=== PATIENT | female | born 1970 | race Caucasian/White ===

== ENCOUNTER 2016-11-05 10:55 | Emergency (ER) | payer OTHER ==
[2016-11-05 12:30] VITALS: BP 113/71
--- NOTE | 2016-11-05 12:44 | UC ---
Lower Extremity/Ankle HPI - HPI Summary HPI Summary: complaint of right foot pain that started yesterday started after pushing a car- felt a pop and lots of pain that started in her foot and shot up her right leg unable to bear any weight after incident - can ambulate with a limp today resting her leg reduces the pain has taken ibuprofen for pain without relief hx of plantar facitis and bone spurs in both feet - History of Current Complaint Chief Complaint: UCLowerExtremity Stated Complaint: RIGHT FOOT INJURY Time Seen by Provider: 11/05/16 12:35 Hx Obtained From: Patient Hx Last Menstrual Period: APPROX 1 WEEK AGO Aggravating Factor(s): Standing, Ambulation Alleviating Factor(s): Rest Able to Bear Weight: Yes - Allergies/Home Medications Allergies/Adverse Reactions: Allergies Allergy/AdvReac Type Severity Reaction Status Date / Time Morphine Allergy Vomiting Verified 11/05/16 12:23 Naproxen Allergy Hives Verified 11/05/16 12:23 Sertraline [From Zoloft] Allergy Hives Verified 11/05/16 12:23 Sulfa Antibiotics Allergy Hives Verified 11/05/16 12:23 Valproic Acid [From Depakote] Allergy Hives Verified 11/05/16 12:23 Home Medications: Home Medications Cholecalciferol TAB* [Vitamin D TAB*] 400 unit PO DAILY 11/05/16 [History Confirmed 11/05/16] PMH/Surg Hx/FS Hx/Imm Hx Previously Healthy: Yes Endocrine History Of: Reports: Thyroid Disease - KRIS Cardiovascular History Of: Denies: Pacemaker/ICD Respiratory History Of: Reports: Asthma - Surgical History Surgical History: Yes Surgery Procedure, Year, and Place: PARTIAL THYROIDECTOMY- now complete. CHOLECYSTECTOMY. RIGHT FOOT SX. hysterectomy - Family History Known Family History: Negative: Cardiac Disease, Hypertension, Diabetes - Social History Occupation: Employed Full-time Lives: With Family Alcohol Use: Rare Substance Use Type: None Smoking Status (MU): Heavy Every Day Tobacco Smoker Type: Cigarettes Amount Used/How Often: 1 1/2 ppd Length of Time of Smoking/Using Tobacco: 30 YRS since age 15 yo Have You Smoked in the Last Year: Yes Household Exposure Type: Cigarettes Cessation Counseling: Patient Advised to Stop Review of Systems Constitutional: Negative Skin: Negative Eyes: Negative ENT: Negative Respiratory: Negative Cardiovascular: Negative Gastrointestinal: Negative Genitourinary: Negative Motor: Negative Neurovascular: Negative Musculoskeletal: Other: - right foot pain Neurological: Negative Psychological: Negative All Other Systems Reviewed And Are Negative: Yes Physical Exam Triage Information Reviewed: Yes Appearance: No Pain Distress, Well-Nourished Vital Signs: Initial Vital Signs Temp 97.5 F 11/05/16 12:25 Pulse 87 11/05/16 12:25 Resp 16 11/05/16 12:25 BP 113/71 11/05/16 12:25 Pulse Ox 98 11/05/16 12:25 Vital Signs Reviewed: Yes Eyes: Positive: Conjunctiva Clear ENT: Positive: Pharynx normal, TMs normal Neck: Positive: No Lymphadenopathy Respiratory: Positive: Lungs clear, Normal breath sounds, No respiratory distress, No accessory muscle use Cardiovascular: Positive: RRR, No Murmur, Pulses Normal Abdomen Description: Positive: Nontender, Soft Bowel Sounds: Positive: Present Musculoskeletal: Positive: Other: - RLE- tenderness between heel and 1st metatarsals, No bony deformities, inflammation, or tenderness in bony prominences of ankle. No pes planus. Full ROM dorsi/plantar flexion, inversion & eversion. Hope test negative.no stepoffs in achilles tendon Neurological Exam: Normal Psychological Exam: Normal Lower Extremity Course/Dx - Differential Dx/Diagnosis Differential Diagnosis/HQI/PQRI: Fracture (Closed), Sprain, Strain, Tendonitis Provider Diagnoses: right foot sprain Discharge - Discharge Plan Condition: Stable Disposition: HOME Patient Education Materials: Foot Sprain (ED), RICE Therapy (ED) Forms: *Work Release Referrals: Richard Chamberlain DO [Primary Care Provider] - Horace Byrnes MD [Medical Doctor] - Additional Instructions: FOOT SPRAIN Symptoms Might Include: Pain in your ankle, foot, or lower leg area Bruising and/or Swelling Possible deformity (bones not lined up as usual) Treatment Recommendations: You should prop your foot up above the level of your heart for the first 24 to 48 hours. This helps cut down on the pain and swelling. You should put an ice pack wrapped in a towel on the injured area for 15 to 20 minutes every 2 to 3 hours when you are awake for the first 2 to 3 days. A compression dressing, like a Velcro splint or Joel wrap, will help give support and cut down on swelling. If the wrap is too tight, it may cause numbness, tingling, paleness, or a cool feeling. If this happens, the wrap should be taken off and put back on looser. Crutches should be used if there is any pain when you put your weight on your foot. You usually only need to use crutches for the first few days. If you have a more severe sprain you might need to use them longer. As the pain gets better , try to walk without the crutches a little at a time until you can walk without any pain. Remember not to overdo it. It may take 3 to 4 weeks to completely get better, even for a mild sprain. It can take much longer for more severe sprains. naproxen (Aleve) may help with both the pain and the swelling in your joints. You should not take these medicines if you have a history of bleeding in your stomach. . Call Your Doctor or patient registration specialist You have a lot more pain or swelling. If the pain is not getting better in 3 days. If you start to have numbness or tingling in your foot or ankle. If the injured area starts to feel cool to the touch or is pale or bluish in color. If you start to have any other symptoms that worry you.
--- NOTE | 2016-11-05 13:12 | RAD ---
Indication: Right foot injury. Comparison is made with previous exam dated April 06, 2008. 3 views of the foot demonstrates prior injury at the head of the proximal phalanx of the fourth digit. No recent fracture is identified. IMPRESSION: Deformity proximal phalanx fourth digit which may be due to prior injury. No recent fracture or abnormality is identified.
== END 2016-11-05 13:37 | disposition home or self-care (01) ==
LOC: UCCORT 10:55
DX: S93.601A Unspecified sprain of right foot, initial encounter (principal); X50.0XXA Overexertion from strenuous movement or load, initial encounter; Y93.89 Activity, other specified; Y92.9 Unspecified place or not applicable; E06.3 Autoimmune thyroiditis; J45.909 Unspecified asthma, uncomplicated; E89.0 Postprocedural hypothyroidism; Z90.49 Acquired absence of other specified parts of digestive tract; Z88.5 Allergy status to narcotic agent; Z88.2 Allergy status to sulfonamides; F17.210 Nicotine dependence, cigarettes, uncomplicated
CPT/HCPCS: 99212; G0463

== ENCOUNTER 2017-09-21 08:50 | Emergency (ER) | payer BC, OTHER ==
--- OUTSIDE RECORDS SUMMARY | 2017-09-21 09:04 | XMS REPORT ---
:1970 External Reference #:[id number] Author Organization [facility] Address [address], [address] [place] [address] Phone [phone] Care Team Providers Name Role Phone Valencia Case MD Care Team Information Legal Entity Controller Unavailable Valencia Case MD Primary Care Physician Unavailable Payers Type Date Identification Numbers Payment Provider Subscriber Commercial Policy Number: [id number] [facility] Roxanna Villanueva PayID: [id number] [address] [place] [address] Commercial Expires: 2017 Policy Number: [facility] Roxanna Villanueva [id number] PayID: [id number] [address] [place] [address] Medigap Part B Expires: 2011 Policy Number: Amber Villanueva [id number] PayID: [id number] [address] [address] [place] [address] Problems Date Description Provider Status Onset: 05/29/2017 Seizure Bella Chauhan M.D. Active Note: seizure disorder, followed by neuro, on phenytoin Onset: 05/29/2017 Hypothyroidism Bella Chauhan M.D. Active Note: hypothyroidism, s/p thyroidectomy Onset: 05/29/2017 Serum triglycerides borderline high Bella Chauhan M.D. Active Onset: 05/29/2017 Tobacco user Bella Chauhan M.D. Active Note: smokes daily Onset: 09/05/2017 Hyperlipidemia Valencia Case MD Active Onset: 03/09/2017 Otitis media Ceferino Rawls M.D. Inactive Inactive: 05/29/2017 Onset: 03/09/2017 Acute sinusitis Ceferino Rawls M.D. 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 Cigarette Use Patient is a current cigarette smoker, smokes every day Smoking Patient is a current smoker, smokes smokes 1 1/2 ppd x 32 years every day Daily Caffeine Current Caffeine User Allergies, Adverse Reactions, Alerts Date Description Reaction Status Severity Comments 12/15/2016 Sulfa Drugs active 12/15/2016 Naproxen active 12/15/2016 Valproic Acid active 12/15/2016 Morphine active 12/15/2016 Zoloft active 09/05/2017 Lipitor active Mouth Sores Medications Medication Date Status Form Strength Qnty SIG Indications Ordering Provider Vitamin D 09/05/ Active Capsules [id number] 12cap 1 tab by Valencia (Ergocalciferol 2018 s mouth every Evie, ) week for 12 MD weeks then stop and switch to daily maintenance Fenofibrate 09/05/ Active Capsules 67mg 30cap 1 tab by Valencia Micronized 2017 s mouth every Evie, day Pravastatin 07/17/ Active Tablets 40mg 30tab 1 tab by Valencia Sodium 2017 s mouth every Evie, day Methocarbamol 05/02/ Active Tablets 750mg 30tab 1-2 tabs by Valencia 2016 s mouth once Evie, at night Levoxyl / Active Tablets 200mcg 1 po qd Unknown 0000 Proair HFA / Active Aerosol 108(90Bas 8.500 2 - 4 Bella 0000 e) gm inhalations Pompo, mcg/Act every 6 M.D. hours as needed, Phenytoin / Active Capsules 100mg 5 PO even Unknown Sodium Extended 0000 days, 4 PO odd days Omeprazole / Active Capsules 40mg 30cap take one Valencia 0000 DR s capsule by Evie, mouth once MD daily Prednisone 08/17/ Hx Tablets 20mg 10tab 2 tabs (40 Valencia 2018 - s mg) daily Evie, 09/05/ for 5 days MD 2017 for shortness of breath/wheez ing Azithromycin 08/17/ Hx Tablets 250mg 6tabs take 2 tabs Valencia 2018 - on day 1 and Veie, 09/05/ take one tab MD 2017 days 2-5 Fluconazole 05/30/ Hx Tablets 200mg 14tab take one B37.81 Bella 2017 - s tablet by Pompo, 09/05/ mouth every M.D. 2018 day for 14 days Lidocaine 05/30/ Hx Solution 2% 200ml rinse mouth K14.0 Bella Viscous 2016 - with 15 ML Pompo, 09/05/ then spit M.D. 2018 out, every 8 hours as needed for mouth pain Tessalon Perles 05/30/ Hx Capsules 100mg 60cap take two J06.9 Bella 2017 s tablets by Pompo, mouth every M.D. 8 hours as needed for cough Spacer 05/30/ Hx 1unit spacer to J06.9 Bella 2017 - s use with Pompo, 09/05/ albuterol M.D. 2018 inhalor as directed Azithromycin 05/30/ Hx Tablets 250mg 6tabs take two J06.9 Bella 2017 tablets by Pompo, mouth on day M.D. one then take one tablet by mouth on day two, three, four, and five Amoxicillin/Cla 05/25/ Hx Tablets 875-125mg 14tab 1 tab by Valencia vulanate 2017 - s mouth q12hrs Evie, Potassium 05/30/ for 7 days 2016 Vitamin D3 High 05/02/ Hx Capsules 1000Unit 2 tabs by Valencia Potency 2017 - mouth every Evie, 09/05/ day MD 2017 Lipitor 05/02/ Hx Tablets 40mg 30tab 1 tab by Valencia 2017 - s mouth every Evie, 07/17/ evening MD 2018 Augmentin 03/09/ Hx Tablets 875-125mg 20tab 1 tab by [id number] Andras 2016 - s mouth twice [facility], 05/02/ a day for 10 M.D. 2016 days Gemfibrozil 01/10/ Hx Tablets 600mg 60tab take one Valencia 2016 - s tablet by Evie, 05/02/ mouth twice 2016 a day,30 minutes before breakfast and dinner Calcitriol / Hx Capsules 5mg 1 cap by Unknown 0000 - mouth three 05/02/ a day 2016 Hydrocodone-Joel / Hx Tablets prn Unknown taminophen 0000 - 2017 Immunizations CPT Code Status Date Vaccine Reaction Lot # [id number] Given 08/28/2017 MMR Vaccine, Live, For Subcutaneous Use none [id number] Given 06/26/2017 MMR Vaccine, Live, For Subcutaneous Use [id number] Given 01/10/2017 Pneumovax Injection [id number] Vital Signs Date Vital Result Comment 09/05/2017 BP Systolic Sitting Right Arm 112 mmHg BP Diastolic Sitting Right Arm 68 mmHg Heart Rate 92 /min Respiratory Rate 20 /min Height 63.5 inches 5'3.50" Weight 201.00 lb BMI (Body Mass Index) 35.0 kg/m2 BSA (Body Surface Area) 1.95 m2 [place] body weight in kilograms 53 08/17/2017 BP Systolic Sitting Right Arm 104 mmHg BP Diastolic Sitting Right Arm 75 mmHg Body Temperature 98.0 F Heart Rate 91 /min Height 63.5 inches 5'3.50" Weight 201.00 lb BMI (Body Mass Index) 35.0 kg/m2 BSA (Body Surface Area) 1.95 m2 [place] body weight in kilograms 53 O2 % BldC Oximetry 99 % ra 05/30/2017 BP Systolic Sitting Right Arm 120 mmHg BP Diastolic Sitting Right Arm 73 mmHg Body Temperature 98.1 F Heart Rate 86 /min Respiratory Rate 16 /min Height 63.5 inches 5'3.50" Weight 200.00 lb BMI (Body Mass Index) 34.9 kg/m2 BSA (Body Surface Area) 1.95 m2 [place] body weight in kilograms 53 O2 % BldC Oximetry 97 % 05/02/2017 BP Systolic 118 mmHg BP Diastolic 62 mmHg Heart Rate 86 /min Respiratory Rate 14 /min Height 63.5 inches 5'3.50" Weight 204.12 lb BMI (Body Mass Index) 35.6 kg/m2 BSA (Body Surface Area) 1.96 m2 [place] body weight in kilograms 53 O2 % BldC Oximetry 98 % 03/09/2017 BP Systolic 125 mmHg BP Diastolic 82 mmHg Body Temperature 96.4 F Heart Rate 79 /min Respiratory Rate 18 /min Height 63.5 inches 5'3.50" Weight 199.00 lb BMI (Body Mass Index) 34.7 kg/m2 BSA (Body Surface Area) 1.94 m2 [place] body weight in kilograms 53 O2 % BldC Oximetry 97 % 01/10/2017 BP Systolic Sitting Right Arm 124 mmHg BP Diastolic Sitting Right Arm 72 mmHg Height 63.5 inches 5'3.50" Weight 197.00 lb BMI (Body Mass Index) 34.3 kg/m2 BSA (Body Surface Area) 1.93 m2 [place] body weight in kilograms 53 Results Test Date Test Result H/L Range Note Comprehensive Metabolic Panel 08/28/2017 Glucose 83 mg/dL 74-106 1 BUN 7 mg/dL 7-18 1 Creatinine 0.6 mg/dL 0.6-1.3 1 Glom Filtration Rate, Estimate >60 mL/min >60 1 If >60 mL/min >60 1, 2 BUN/Creat 11.6 ratio 1 Sodium 143 mmol/L 136-145 1 Potassium 3.9 mmol/L 3.5-5.1 1 Chloride 108 mmol/L High 98-107 1 Carbon Dioxide 29 mmol/L 21-32 1 Anion Gap 6 mEq/L Low 8-16 1 Calcium 8.9 mg/dL 8.5-10.1 1 Total Protein 6.9 g/dL 6.4-8.2 1 Albumin 3.6 g/dL 3.4-5.0 1 Globulin 3.3 g/dL 1.9-4.3 1 Alb/Glob 1.1 ratio 1 Bilirubin,Total 0.2 mg/dL 0.2-1.0 1 Sgot/Ast 8 U/L Low 15-37 1, 3 SGPT/Alt 23 U/L 12-78 1 Alkaline Phosphatase 160 U/L High 45-117 1 Laboratory test 08/28/2017 Vitamin D,25-Hydroxy 16.1 ng/mL Low 30.0-100.0 1, 4 finding LDL Cholesterol 08/28/2017 Cholesterol 269 mg/dL High <200 1, 5 Profile Triglycerides 471 mg/dL High <150 1, 6 HDL Cholesterol 48 mg/dL >40 1, 7 LDL-Cholesterol TNP mg/dL < 100 1, 8 CBS W/Automated Diff 08/28/2017 White Blood Count 6.5 K/uL 3.1-10.7 1 Red Blood Count 4.52 M/uL 3.90-5.40 1 Hemoglobin 14.7 gm/dL 11.6-15.8 1 Hematocrit 45.3 % 36.0-46.1 1 Mean Cell Volume 100.2 fl High 80.9-99.0 1 Mean Corpuscular HGB 32.5 pg 25.9-32.7 1 Mean Corpuscular HGB Conc 32.5 g/dL 30.8-34.3 1 Platelet Count 299 K/uL 155-360 1 Red Cell Distri Width SD 50.6 fl High 3-47 1 Red Cell Distri Width %CV 14.1 % 11.7-14.4 1 Mean Platelet Volume 10.5 fL 8.9-12.4 1 Neut% 50.5 % 40.4-72.8 1 Lymph % 36.4 % 20.0-42.0 1 Mcdonald % 8.9 % 4.3-13.2 1 Eo% 3.1 % 0.0-6.6 1 Bas% 1.1 % 0.0-1.1 1 Neut# 3.31 K/uL 1.8-7.0 1 Lymph # 2.38 K/uL 1.0-4.0 1 Mcdonald # 0.58 K/uL 0.3-0.9 1 Eos # 0.20 K/uL 0.0-0.5 1 Baso # 0.07 K/uL 0.0-0.1 1 Throat Culture 08/17/2017 Throat Culture NORMAL THROAT FL 9, 10 Complete Complete <SEE NOTE> Laboratory test 07/13/2017 Rheumatoid Factor <10 IU/mL <14 11 finding Qnt Sed Rate - Esr 23 mm/hr High <20 Treasure 07/13/2017 [place] Homogen Titr Ser <50 1/dil 0-49 [place] Speckled Titr Ser 50 1/dil High 0-49 [place] Rim Titr Ser <50 1/dil 0-49 [place] nucleolar Titr Ser <50 1/dil 0-49 Whitney SS-A Ab Ser If-aCnc 24 [AU]/mL 0-99 Whitney SS-B Ab Ser If-aCnc 10 [AU]/mL 0-99 Whitney SM Ab Ser If-aCnc 8 [AU]/mL 0-99 Whitney GYROSCOPIC INSTRUMENT MECHANIC Ab Ser If-aCnc 18 U/ML 0-99 Whitney Scl70 Ab Ser-aCnc 6 [AU]/mL 0-99 Whitney Jo1 Ab Ser If-aCnc 12 [AU]/mL 0-99 dsDNA Ab Ser If-aCnc 5 [IU]/mL 0-99 Centromere Ab Ser-aCnc 12 [AU]/mL 0-99 Histone IgG Ser-aCnc 18 [AU]/mL 0-99 HIV Screen 4TH 05/31/2017 HIV Screen 4th Non Reactive Non Reactive 12, 13 Gen Reflex Generation wRfx Celiac Disease 05/31/2017 Immunoglobulin A 137 mg/dL 87-352 12, 14 Comp AB Profile Antigliadin Abs, IgG 3 units 0-19 12, 15 Antigliadin Abs, IgA 3 units 0-19 12, 16 Endomysial IgA Antibody Negative Negative 12 t-Transglutaminase IgA <2 U/mL 0-3 12, 17 t-Transglutaminase IgG <2 U/mL 0-5 12, 18 Vitamin B12 And Folate 05/31/2017 Vitamin B12 385 pg/mL 193-986 12 Folic Acid 4.5 ng/mL 3.1-17.5 12 Laboratory test 05/31/2017 Varicella-Zoster Virus 145 index Low Immune 12 , 19 finding IgG Ab >165 Rubella IgG Antibody 6.18 index Immune >0.99 12, 20 Rubeola Antibodies, Igg <25.0 AU/mL Low Immune >29.9 12, 21 Mumps Antibodies, Igg 76.5 AU/mL Immune >10.9 12, 22 Hepatitis B Surface Antibody Non Reactive . 12, 23 Hepatitis B Surface Antigen Negative Negative 12 Respiratory Culture W/Gram St 05/31/2017 Gram Stain <25 WBC/LPF 12 Gram Stain <10 SQUAMOUS EPI <SEE NOTE> 12, 24 Gram Stain RARE GRAM POSITI <SEE NOTE> 12, 25 Respiratory Culture YEAST LIKE ORGAN <SEE NOTE> 12, 26 Quantity MODERATE 12 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 <SEE NOTE> 12, 27 Quantity MODERATE 12 Laboratory test finding 05/30/2017 Treponema Antibody Negative Negative 28, 29 [place] Gamma Glutamyl Transpeptidase 76 U/L 5-85 28 Throat Culture Complete 05/30/2017 Throat Culture NORMAL THROAT FL 30, 31 Complete <SEE NOTE> Comprehensive Metabolic 05/29/2017 Glucose 79 mg/dL 74-106 Panel BUN 6 mg/dL Low 7-18 Creatinine 0.7 mg/dL 0.6-1.3 Glom Filtration Rate, Estimate >60 mL/min >60 If >60 mL/min >60 32 BUN/Creat 8.5 ratio Sodium 139 mmol/L 136-145 Potassium 4.0 mmol/L 3.5-5.1 Chloride 106 mmol/L 98-107 Carbon Dioxide 28 mmol/L 21-32 Anion Gap 5 mEq/L Low 8-16 Calcium 9.4 mg/dL 8.5-10.1 Total Protein 6.8 g/dL 6.4-8.2 Albumin 3.6 g/dL 3.4-5.0 Globulin 3.2 g/dL 1.9-4.3 Alb/Glob 1.1 ratio Bilirubin,Total 0.2 mg/dL 0.2-1.0 Sgot/Ast 12 U/L Low 15-37 33 SGPT/Alt 22 U/L 12-78 Alkaline Phosphatase 160 U/L High 45-117 LDL Cholesterol Profile 05/29/2017 Cholesterol 208 mg/dL High <200 34 Triglycerides 308 mg/dL High <150 35 HDL Cholesterol 50 mg/dL >40 36 LDL-Cholesterol 96 mg/dL < 100 37 Laboratory test finding 05/29/2017 Thyroid Stim Hormone 2.78 uIU/mL 0.30- 4.20 Free T4 1.11 ng/dL 0.76-1.46 CBS W/Automated Diff 05/29/2017 White Blood Count 8.1 K/uL 3.1-10.7 Red Blood Count 4.41 M/uL 3.90-5.40 Hemoglobin 14.2 gm/dL 11.6-15.8 Hematocrit 43.3 % 36.0-46.1 Mean Cell Volume 98.2 fl 80.9-99.0 Mean Corpuscular HGB 32.2 pg 25.9-32.7 Mean Corpuscular HGB Conc 32.8 g/dL 30.8-34.3 Platelet Count 261 K/uL 150-400 Red Cell Distri Width SD 49.4 fl High 3-47 Red Cell Distri Width %CV 14.1 % 11.7-14.4 Mean Platelet Volume 10.7 fL 8.9-12.4 Neut% 58.4 % 40.4-72.8 Lymph % 30.9 % 20.0-42.0 Mcdonald % 7.0 % 4.3-13.2 Eo% 3.0 % 0.0-6.6 Bas% 0.7 % 0.0-1.1 Neut# 4.73 K/uL 1.8-7.0 Lymph # 2.51 K/uL 1.0-4.0 Mcdonald # 0.57 K/uL 0.3-0.9 Eos # 0.24 K/uL 0.0-0.5 Baso # 0.06 K/uL 0.0-0.1 Laboratory test finding 04/19/2017 Thyroid Stim Hormone 0.42 uIU/mL 0.30- 4.20 38 CBS W/Automated Diff 04/19/2017 White Blood Count 7.3 K/uL 3.1-10.7 38 Red Blood Count 4.36 M/uL 3.90-5.40 38 Hemoglobin 14.2 gm/dL 11.6-15.8 38 Hematocrit 41.4 % 36.0-46.1 38 Mean Cell Volume 95.0 fl 80.9-99.0 38 Mean Corpuscular HGB 32.6 pg 25.9-32.7 38 Mean Corpuscular HGB Conc 34.3 g/dL 30.8-34.3 38 Platelet Count 247 K/uL 150-400 38 Red Cell Distri Width SD 44.3 fl 3-47 38 Red Cell Distri Width %CV 13.1 % 11.7-14.4 38 Mean Platelet Volume 10.4 fL 8.9-12.4 38 Neut% 61.5 % 40.4-72.8 38 Lymph % 28.3 % 20.0-42.0 38 Mcdonald % 6.5 % 4.3-13.2 38 Eo% 3.0 % 0.0-6.6 38 Bas% 0.7 % 0.0-1.1 38 Neut# 4.46 K/uL 1.8-7.0 38 Lymph # 2.05 K/uL 1.0-4.0 38 Mcdonald # 0.47 K/uL 0.3-0.9 38 Eos # 0.22 K/uL 0.0-0.5 38 Baso # 0.05 K/uL 0.0-0.1 38 Comprehensive Metabolic Panel 04/19/2017 Glucose 86 mg/dL 74-106 38 BUN 6 mg/dL Low 7-18 38 Creatinine 0.7 mg/dL 0.6-1.3 38 Glom Filtration Rate, Estimate >60 mL/min >60 38 If >60 mL/min >60 38, 39 BUN/Creat 8.5 ratio 38 Sodium 142 mmol/L 136-145 38 Potassium 3.8 mmol/L 3.5-5.1 38 Chloride 111 mmol/L High 98-107 38 Carbon Dioxide 25 mmol/L 21-32 38 Anion Gap 6 mEq/L Low 8-16 38 Calcium 9.4 mg/dL 8.5-10.1 38 Total Protein 7.7 g/dL 6.4-8.2 38 Albumin 3.8 g/dL 3.4-5.0 38 Globulin 3.9 g/dL 1.9-4.3 38 Alb/Glob 1.0 ratio 38 Bilirubin,Total 0.2 mg/dL 0.2-1.0 38 Sgot/Ast 8 U/L Low 15-37 38, 40 SGPT/Alt 19 U/L 12-78 38 Alkaline Phosphatase 141 U/L High 45-117 38 Laboratory test 04/19/2017 Vitamin D,25-Hydroxy 23.9 ng/mL Low 30.0-100.0 38, 41 finding LDL Cholesterol 04/19/2017 Cholesterol 296 mg/dL High <200 38, 42 Profile Triglycerides 353 mg/dL High <150 38, 43 HDL Cholesterol 48 mg/dL >40 38, 44 LDL-Cholesterol 177 mg/dL < 100 38, 45 Serum or plasma thyroxine 01/29/2017 Serum or plasma thyroxine 1.14 0.76- 1.46 (T4) free measurement (m (T4) free measurement (mass/volume) TSH SerPl-aCnc 01/29/2017 TSH [facility] 1.22 0.30-4.20 1 R94.5,E55.9 2 Note: Persistent reduction for 3 months or more in an eGFR <60 mL/min/1.73 m2 defines CKD. Patients with eGFR values >/=60 mL/min/1.73 m2 may also have CKD if evidence of persistent proteinuria is present. The original MDRD equation for estimated GFR is not valid for patients less than 18 years of age. Additional information may be found at www.kdoqi.org. 3 Values below the stated reference ranges of AST and ALT can be seen in normal populations. Clinical correlation is suggested. 4 Vitamin D deficiency has been defined by the [place] of Medicine and an Endocrine Society practice guideline as a level of serum 25-OH vitamin D less than 20 ng/mL (1,2). The Endocrine Society went on to further define vitamin D insufficiency as a level between 21 and 29 ng/mL (2). 1. IOM ([place] of Medicine). 2010. Dietary reference intakes for calcium and D. [place]: The National Academies Press. 2. Shelby MF, Inez MAKI, Pablo RUSSELL, et al. Evaluation, treatment, and prevention of vitamin D deficiency: an Endocrine Society clinical practice guideline. JCEM. 2010; 96(7):1911-30. Performed at: RN - [facility] [address] [id number] Waiter/Waitress Room Service: Francine Khan MD, Phone: [phone] 5 Reference Guidelines*: Desirable: ........... < 200 mg/dL Borderline High: ..... 200-239 mg/dL High: ................ >=240 mg/dL * The National Cholesterol Education Program (NCEP) 6 Reference Guidelines*: Normal: ............. < 150 mg/dL Borderline High: .... 150-199 mg/dL High: ............... 200-499 mg/dL Very High: .......... > 500 mg/dL * Source: National Cholesterol Education Program (NCEP) 7 Reference Guidelines*: Low HDL: ..... < 40 mg/dL Normal: ..... 40-60 mg/dL Desirable: ... > 60 mg/dL *The National Cholesterol Education Program(NCEP) 8 (LDL CANNOT BE CALCULATED FOR TRIGS >400 mg/dL) 9 J02.9 10 NORMAL THROAT LYNN 11 Confirmed 12 NO ORDER 13 Performed at: [address] [id number] Waiter/Waitress Room Service: Francine Khan MD, Phone: [phone] 14 Performed at: [address] [id number] Waiter/Waitress Room Service: Francine Khan MD, Phone: [phone] 15 Negative 0 - 19 Weak Positive 20 - 30 Moderate to Strong Positive >30 16 Negative 0 - 19 Weak Positive 20 - 30 Moderate to Strong Positive >30 17 Negative 0 - 3 Weak Positive 4 - 10 Positive >10 Tissue Transglutaminase (tTG) has been identified as the endomysial antigen. Studies have demonstr- ated that endomysial IgA antibodies have over 99% specificity for gluten sensitive enteropathy. 18 Negative 0 - 5 Weak Positive 6 - 9 Positive >9 19 A second sample should be collected and tested no less than 2-4 weeks. Negative <135 Equivocal 135 - 165 Positive >165 A positive result generally indicates exposure to the pathogen or administration of specific immunoglobulins, but it is not indication of active infection or stage of disease. Performed at: [address] [id number] Waiter/Waitress Room Service: Francine Khan MD, Phone: [phone] 20 Non-immune <0.90 Equivocal 0.90 - 0.99 Immune >0.99 Performed at: [address] [id number] Waiter/Waitress Room Service: Francine Khan MD, Phone: [phone] 21 Negative <25.0 Equivocal 25.0 - 29.9 Positive >29.9 Presence of antibodies to Rubeola is presumptive evidence of immunity except when acute infection is suspected. 22 Negative <9.0 Equivocal 9.0 - 10.9 Positive >10.9 A positive result generally indicates past exposure to Mumps virus or previous vaccination. 23 Non Reactive: Inconsistent with immunity, less than 10 mIU/mL Reactive: Consistent with immunity, greater than 9.9 mIU/mL 24 <10 SQUAMOUS EPITHELIAL CELLS/LPF 25 RARE GRAM POSITIVE COCCI 26 YEAST LIKE ORGANISM 27 RESPIRATORY LYNN 28 J06.9, K13.79, R94.5, JO6.9 29 Performed at: - [facility], [place], [place] [id number] Waiter/Waitress Room Service: Mitchell Ornelas MD, Phone: [phone] 30 J06.9,K13.79,R94.5 31 NORMAL THROAT LYNN 32 Note: Persistent reduction for 3 months or more in an eGFR <60 mL/min/1.73 m2 defines CKD. Patients with eGFR values >/=60 mL/min/1.73 m2 may also have CKD if evidence of persistent proteinuria is present. The original MDRD equation for estimated GFR is not valid for patients less than 18 years of age. Additional information may be found at www.kdoqi.org. 33 Values below the stated reference ranges of AST and ALT can be seen in normal populations. Clinical correlation is suggested. 34 Reference Guidelines*: Desirable: ........... < 200 mg/dL Borderline High: ..... 200-239 mg/dL High: ................ >=240 mg/dL * The National Cholesterol Education Program (NCEP) 35 Reference Guidelines*: Normal: ............. < 150 mg/dL Borderline High: .... 150-199 mg/dL High: ............... 200-499 mg/dL Very High: .......... > 500 mg/dL * Source: National Cholesterol Education Program (NCEP) 36 Reference Guidelines*: Low HDL: ..... < 40 mg/dL Normal: ..... 40-60 mg/dL Desirable: ... > 60 mg/dL *The National Cholesterol Education Program(NCEP) 37 Reference Guidelines*: Optimal:........... <100 mg/dL Near Optimal....... 100-129 mg/dL Borderline High.... 130-159 mg/dL High............... 160-189 mg/dL Very High.......... >=190 mg/dL * Source: National Cholesterol Education Program (NCEP) 38 E78.5,E03.9, E55.9,MO5.77 39 Note: Persistent reduction for 3 months or more in an eGFR <60 mL/min/1.73 m2 defines CKD. Patients with eGFR values >/=60 mL/min/1.73 m2 may also have CKD if evidence of persistent proteinuria is present. The original MDRD equation for estimated GFR is not valid for patients less than 18 years of age. Additional information may be found at www.kdoqi.org. 40 Values below the stated reference ranges of AST and ALT can be seen in normal populations. Clinical correlation is suggested. 41 Vitamin D deficiency has been defined by the [place] of [place] and an Endocrine Society practice guideline as a level of serum 25-OH vitamin D less than 20 ng/mL (1,2). The Endocrine Society went on to further define vitamin D insufficiency as a level between 21 and 29 ng/mL (2). 1. IOM ([place] of Medicine). 2010. Dietary reference intakes for calcium and D. [place]: The National Academies Press. 2. Shelby MF, Inez [place], Pablo RSUSELL, et al. Evaluation, treatment, and prevention of vitamin D deficiency: an Endocrine Society clinical practice guideline. JCEM. 2011 Jan; 96(7):1911-30. Performed at: RN - [facility] [address] [id number] Waiter/Waitress Room Service: Francine Khan MD, Phone: [phone] 42 Reference Guidelines*: Desirable: ........... < 200 mg/dL Borderline High: ..... 200-239 mg/dL High: ................ >=240 mg/dL * The National Cholesterol Education Program (NCEP) 43 Reference Guidelines*: Normal: ............. < 150 mg/dL Borderline High: .... 150-199 mg/dL High: ............... 200-499 mg/dL Very High: .......... > 500 mg/dL * Source: National Cholesterol Education Program (NCEP) 44 Reference Guidelines*: Low HDL: ..... < 40 mg/dL Normal: ..... 40-60 mg/dL Desirable: ... > 60 mg/dL *The National Cholesterol Education Program(NCEP) 45 Reference Guidelines*: Optimal:........... <100 mg/dL Near Optimal....... 100-129 mg/dL Borderline High.... 130-159 mg/dL High............... 160-189 mg/dL Very High.......... >=190 mg/dL * Source: National Cholesterol Education Program (NCEP) Procedures Date CPT Code Description Status Comment 12/14/2016 Mammogram Completed Document: 12/27/15 - Mammogram Result 12/13/2016 [id number] Eye Exam New Patient Completed Comprehensive 06/15/2016 Colonoscopy Completed due in 3 years againDocument: 07/14/16 - Colonoscopy report-Thrasher 12/27/2015 Mammogram Completed 03/13/2014 37432 Anesthesia, Vaginal Completed Hysterectomy 09/25/2012 [id number] Anesthesia, Lower Arm Surgery Completed Open/Surg Arthroscopic/Endoscopic 12/04/2011 [id number] Anesthesia, Upper Abdomen Completed Surgery Not Otherwise Spec 11/30/2011 32213 EKG Interpretation And Report Completed Only 10/05/2008 26870 Colonoscopy With Polypectomy Completed 10/05/2008 Colonoscopy Completed Document: 10/05/08 - Colon & BX Encounters Type Date Location Provider CPT E/M Dx Office Visit 05/30/2017 8:15a Primary Care Office Bella Chauhan M.D. 12043 K14.0 B37.81 J06.9 K13.79 R94.5 R06.02 Z71.6 J01.90 E03.9 Office Visit 05/02/2017 9:40a [place] [address] E03.9 E78.5 E55.9 M25.571 Office Visit 03/09/2017 10:40a Primary Care Office Ceferino Rawls M.D. 99606 H66.91 J01.90 Office Visit 01/10/2017 2:40p [place] [address] E78.5 E03.9 E55.9 G40.89 M72.2 Z23 Office Visit 10/20/2008 2:30p JENAE Vasquez M.D. 26227 564.1 211.3 Office Visit 08/20/2008 10:50a JENAE Vasquez M.D. 48291 787.91 530.81 564.1 Plan of Care Future Appointment(s):12/07/2017 10:00 am - Valencia Case MD at [facility] Thqfee2809/05/2017 - Valencia Case, MDR94.5 Abnormal results of liver function studiesNew Xrays:Ultrasound, Abdomen CompleteComments:-alk phos elevated, GGT normal, Vit D low-Replete vit D-Check Alk phos again-Check US of Abd -After vit D repletion, if still elevated will check bone density examE78.5 Hyperlipidemia , unspecifiedNew Labs:Comprehensive Metabolic PanelLDL Cholesterol ProfileComments:-Elevated triglycerides-Pravastatin 40mg, add fenofibrate 67mg- Discussed risk of myopathy, rhabdo and told her if she has any pain to stop medication immediately -recheck lipid panel fasting in 3 pvyfmwL28.9 Hypothyroidism, unspecifiedNew Labs:Thyroid Stim HormoneFree T1Pwdbnupa:-hx of thyroidectomy-check tsh, free t4-continue levoxyl -TSH WNL on recent blood workE55.9 Vitamin D deficiency, unspecifiedNew Labs:Vitamin D,25-HydroxyComments :-Vit D low-Ergocalciferol once a week x 12 weeks -recheck before next [id number] Metatarsalgia, right footComments:-methocarbamol at night-try during day on day off to see if it causes drowsiness and discussed risk of driving if uses during day-Podiatry Dr. Clements referred her to Rheum and Rheum referred her to Ortho-Ortho gave boot which did not helpAllNew Medication: Vitamin D (Ergocalciferol) 88362 UnitFenofibrate Micronized 67 mgFollow up:f/u in 3 months fasting blood work prior ortho notes
== END 2017-09-21 09:35 | disposition left against medical advice (07) ==
LOC: UCCORT 08:50
DX: R11.0 Nausea (principal); R52 Pain, unspecified; Z53.21 Procedure and treatment not carried out due to patient leaving prior to being seen by health care provider

== ENCOUNTER 2018-03-04 15:15 | Emergency (ER) | payer BC ==
[2018-03-04 15:51] VITALS: BP 131/75
--- NOTE | 2018-03-04 16:10 | UC ---
Abdominal Pain Female HPI - HPI Summary HPI Summary: The pt c/o frequent diarrhea up to 10 X's per day. Has not tried OTC antidiarrheal. Pt c/o worsening pain in RLQ Denies any urinary symptoms - History of Current Complaint Chief Complaint: UCGI Stated Complaint: NOT FEELING WELL X 1 WEEK Time Seen by Provider: 03/04/18 15:47 Hx Obtained From: Patient Hx Last Menstrual Period: APPROX 1 WEEK AGO ?: No Onset/Duration: Sudden Onset, Still Present, Worse Since - onset Timing: Constant Severity Initially: Mild Severity Currently: Moderate Pain Intensity: 0 Location: Discrete At: RLQ Radiates: No Character: Dull, Sharp Aggravating Factor(s): Movement Alleviating Factor(s): Nothing Associated Signs and Symptoms: Positive: Diarrhea - frequent X 10 a day - Risk Factors Ectopic Risk Factor: Negative Ovarian Torsion Risk Factor: Negative Allergies/Adverse Reactions: Allergies Allergy/AdvReac Type Severity Reaction Status Date / Time divalproex sodium Allergy Intermediate Hives Verified 03/04/18 15:55 [From Depakote] naproxen Allergy Intermediate Hives Verified 03/04/18 15:55 sertraline [From Zoloft] Allergy Intermediate Hives Verified 03/04/18 15:55 morphine AdvReac Intermediate Vomiting Verified 03/04/18 15:55 PMH/Surg Hx/FS Hx/Imm Hx Previously Healthy: Yes Respiratory History: COPD GI/ History: Gastroesophageal Reflux - Surgical History Surgical History: Yes Surgery Procedure, Year, and Place: PARTIAL THYROIDECTOMY- now complete. CHOLECYSTECTOMY. RIGHT FOOT SX. hysterectomy - Family History Known Family History: Negative: Cardiac Disease, Hypertension, Diabetes - Social History Occupation: Employed Full-time Lives: With Family Alcohol Use: Rare Substance Use Type: None Smoking Status (MU): Heavy Every Day Tobacco Smoker Type: Cigarettes Amount Used/How Often: 1 1/2 ppd Length of Time of Smoking/Using Tobacco: 30 YRS since age 15 yo Have You Smoked in the Last Year: Yes Household Exposure Type: Cigarettes Review of Systems Constitutional: Negative Skin: Negative Eyes: Negative ENT: Negative Respiratory: Negative Cardiovascular: Negative Gastrointestinal: Abdominal Pain - RLQ, Diarrhea Genitourinary: Negative Motor: Negative Neurovascular: Negative Musculoskeletal: Negative Neurological: Negative Psychological: Negative Is Patient Immunocompromised?: No All Other Systems Reviewed And Are Negative: Yes Physical Exam Triage Information Reviewed: Yes Appearance: Pain Distress Vital Signs: Initial Vital Signs Temp 98.3 F 03/04/18 15:46 Pulse 89 03/04/18 15:46 Resp 18 03/04/18 15:46 BP 131/75 03/04/18 15:46 Pulse Ox 99 03/04/18 15:46 Vital Signs Reviewed: Yes Eye Exam: Normal ENT Exam: Normal Dental Exam: Normal Neck exam: Normal Respiratory Exam: Normal Cardiovascular Exam: Normal Abdomen Description: Positive: McBurney's Point Tenderness Bowel Sounds: Positive: Present Musculoskeletal Exam: Normal Neurological Exam: Normal Psychological Exam: Normal Skin Exam: Normal Diagnostics - Radiology No standard instances Radiology Interpretation Completed By: Radiologist - IMPRESSION: NO EVIDENCE OF OBSTRUCTIVE UROPATHY IS NOTED. NO EVIDENCE OF DILATED LOOPS OF BOWEL ARE PRESENT. NORMAL APPENDIX. PATIENT IS STATUS POST HYSTERECTOMY. Abd Pain Female Course/Dx - Differential Dx/Diagnosis Differential Diagnosis: Appendicitis, Diverticulitis Provider Diagnoses: abdominal pain. diarrhea Discharge - Sign-Out/Discharge Documenting (check all that apply): Patient Departure All imaging exams completed and their final reports reviewed: Yes - Discharge Plan Condition: Stable Disposition: HOME Patient Education Materials: Acute Diarrhea (ED), Abdominal Pain (ED) Forms: *Work Release Referrals: [facility] [Outside] - As Soon As Possible No Primary Care Phys,NOPCP [Primary Care Provider] - - Billing Disposition and Condition Condition: STABLE Disposition: Home
--- NOTE | 2018-03-04 16:50 | RAD ---
Indication: Abdominal pain. CT of the abdomen and pelvis was performed without oral or IV contrast administration. Coronal and sagittal reconstructed images were obtained. There are no prior studies available for comparison Lung bases demonstrate no pleural fluid, nodules or masses. Heart is of normal size without evidence of pericardial effusion. Liver is normal in size. Patient is status post cholecystectomy. There are no focal hepatic lesions or intrahepatic ductal dilatation although evaluation is limited due to lack of IV contrast. Pancreas demonstrates no mass or pancreatic duct dilatation. The spleen is normal in size. No adrenal masses are noted. The kidneys demonstrate no hydronephrosis in either kidney. No focal masses are noted in the kidneys. Atherosclerotic aorta is noted. No evidence of abdominal aortic aneurysm is noted. Inferior vena cava is unremarkable. No retroperitoneal lymphadenopathy is noted. No dilated loops of bowel are noted. Evaluation of the pelvis demonstrates normal-appearing appendix. No abnormally dilated loops of bowel are noted. The urinary bladder is unremarkable. The patient is status post hysterectomy. No hernias are identified. The bony structures demonstrate no fracture of the pelvis or lumbar spine. IMPRESSION: NO EVIDENCE OF OBSTRUCTIVE UROPATHY IS NOTED. NO EVIDENCE OF DILATED LOOPS OF BOWEL ARE PRESENT. NORMAL APPENDIX. PATIENT IS STATUS POST HYSTERECTOMY.
== END 2018-03-04 17:01 | disposition home or self-care (01) ==
LOC: UCCORT 15:15
DX: R10.31 Right lower quadrant pain (principal); R19.7 Diarrhea, unspecified; Z88.8 Allergy status to other drugs, medicaments and biological substances; Z88.5 Allergy status to narcotic agent; F17.210 Nicotine dependence, cigarettes, uncomplicated
CPT/HCPCS: 74176; 99211; G0463

== ENCOUNTER 2019-01-05 16:39 | Emergency (ER) | payer BC, OTHER ==
[2019-01-05 17:10] VITALS: BP 130/83
[2019-01-05] MEDS ORDERED: Gelfoam 12-7 ADSORBABL SPONGE* 1 EA SPONGE TOPICAL ONE (17:21)
--- NOTE | 2019-01-05 17:24 | UC ---
Laceration HPI - HPI Summary HPI Summary: At work when she sustained a laceration to her right ring finger from a broken dish. She is unsure of her last tetanus immunization however she refuses that here. - History Of Current Complaint Chief Complaint: UCLaceration Stated Complaint: LACERATION RIGHT RING FINGER Time Seen by Provider: 01/05/19 17:05 Hx Obtained From: Patient Hx Last Menstrual Period: APPROX 1 WEEK AGO Laceration Location: Finger Mechanism Of Injury: Sharp Trauma Onset/Duration: Sudden Onset Severity: Mild Pain Intensity: 8 Aggravating Factors: Movement - Allergies/Home Medications Allergies/Adverse Reactions: Allergies Allergy/AdvReac Type Severity Reaction Status Date / Time divalproex sodium Allergy Intermediate Hives Verified 01/05/19 17:02 [From Depakote] naproxen Allergy Intermediate Hives Verified 01/05/19 17:02 sertraline [From Zoloft] Allergy Intermediate Hives Verified 01/05/19 17:02 morphine AdvReac Intermediate Vomiting Verified 01/05/19 17:02 PMH/Surg Hx/FS Hx/Imm Hx Previously Healthy: Yes Endocrine History: Thyroid Disease Respiratory History: Asthma - Surgical History Surgical History: Yes Surgery Procedure, Year, and Place: THYROIDECTOMY- now complete. CHOLECYSTECTOMY. RIGHT FOOT SX. hysterectomy - Family History Known Family History: Negative: Cardiac Disease, Hypertension, Diabetes - Social History Lives: With Family Alcohol Use: Rare Substance Use Type: None Smoking Status (MU): Heavy Every Day Tobacco Smoker Type: Cigarettes Amount Used/How Often: 1 1/2 ppd Length of Time of Smoking/Using Tobacco: 30 YRS since age 14 yo Have You Smoked in the Last Year: Yes Household Exposure Type: Cigarettes Review of Systems All Other Systems Reviewed And Are Negative: Yes Skin: Positive: Other - Avulsion laceration to distal right ring finger. Bleeding is controlled. Motor: Positive: Negative Neurovascular: Positive: Negative Musculoskeletal: Positive: Negative Neurological: Positive: Negative Psychological: Positive: Negative Is Patient Immunocompromised?: No Physical Exam Triage Information Reviewed: Yes Appearance: Well-Appearing, No Pain Distress, Well-Nourished Vital Signs: Initial Vital Signs Temp 98 F 01/05/19 17:03 Pulse 85 01/05/19 17:03 Resp 20 01/05/19 17:03 BP 130/83 01/05/19 17:03 Pulse Ox 96 01/05/19 17:03 Vital Signs Reviewed: Yes Musculoskeletal Exam: Normal Musculoskeletal: Positive: Other: - Good peripheral pulses neuro sensation capillary refill, full range of motion with flexion and extension against resistance. Neurological Exam: Normal Psychological Exam: Normal Skin: Positive: Other - Approximately 1.0 cm superficial avulsion laceration to distal right ring finger palmar side. Bleeding is controlled. Laceration Course/Dx - Course/Dx Course Of Treatment: Patient refused a tetanus immunization. A Gelfoam dressing was applied here and she may change it daily and watch for signs of infection which were reviewed with the patient. She'll follow-up with her primary care provider as needed. - Diagnosis Provider Diagnosis: Laceration of right ring finger Discharge - Sign-Out/Discharge Documenting (check all that apply): Patient Departure All imaging exams completed and their final reports reviewed: No Studies - Discharge Plan Condition: Fair Disposition: HOME Patient Education Materials: Laceration (DC) Referrals: Valencia Case MD [Primary Care Provider] - Additional Instructions: Change dressing daily, watch for signs of infection such as hot, red, tender, pus drainage or red streaks up the finger. Tylenol for pain. Follow-up with your primary care provider for any further concerns. - Billing Disposition and Condition Condition: FAIR Disposition: Home
== END 2019-01-05 17:39 | disposition home or self-care (01) ==
LOC: UCCORT 16:39
DX: S61.214A Laceration without foreign body of right ring finger without damage to nail, initial encounter (principal); W26.8XXA Contact with other sharp object(s), not elsewhere classified, initial encounter; Y92.9 Unspecified place or not applicable; Z88.5 Allergy status to narcotic agent; F17.210 Nicotine dependence, cigarettes, uncomplicated
CPT/HCPCS: 99212; A9270-GY; G0463

== ENCOUNTER 2019-02-10 18:44 | Emergency (ER) | payer BC, OTHER ==
--- OUTSIDE RECORDS SUMMARY | 2019-02-10 18:56 | XMS REPORT | Continuity of Care Document ---
:1970 External Reference #:[id number] Author Name Valencia Case MD Address [address] [place] [address] Care Team Providers Name Role Phone Valencia Case MD Care Team Information Instant Print Operator Unavailable Valencia Case MD Primary Care Physician Unavailable Payers Date Identification Numbers Payment Provider Subscriber Onset: 2019 Policy Number: [id number] [employer] Roxanna Villanueva PayID: [id number] [place] [address] Problems Active Problems Provider Date Seizure Bella Chauhan M.D. Onset: 05/29/2017 Note: seizure disorder, followed by neuro, on phenytoin Hypothyroidism Bella Chauhan M.D. Onset: 05/29/2017 Note: hypothyroidism, s/p thyroidectomy Serum triglycerides borderline high Bella Chauhan M.D. Onset: 05/29/2017 Tobacco user Bella Chauhan M.D. 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 Onset: 03/09/2017 Inactive: 05/29/2017 Acute sinusitis Ceferino Rawls M.D. 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 Tobacco Use Start: Unknown Patient is a current cigarette smoker, smokes every day Smoking Status Reviewed: 01/10/19 Patient is a current cigarette smoker, smokes every day Tobacco Use Start: Unknown Patient is a current smokes 1 1/2 ppd x 32 smoker, smokes every day years Allergies, Adverse Reactions, Alerts Active Allergies Reaction Severity Comments Date Sulfa Drugs 12/15/2016 Naproxen 12/15/2016 Depakote 12/15/2016 Morphine 12/15/2016 Divalproex Sodium 09/21/2017 Zoloft 12/15/2016 Atorvastatin 09/21/2017 Lipitor Mouth Sores 09/05/2017 Medications Active Medications SIG Qnty Indications Ordering Date Provider Cephalexin 1 by mouth three 30caps L03.011 Valencia Case, 01/10/2019 500mg times a day MD Capsules Nicotrol inhale and use up 168units Valencia Case, 09/18/2018 10mg to 6 cartridges a MD Inhaler day Ventolin HFA take 2 puffs every 24gm Valencia Case, 01/15/2018 6 hours as needed 108(90Base) mcg/Act for shortness of Aerosol breath. Gemfibrozil take one tablet by 180tabs Valencia Case, 01/15/2018 600mg mouth twice a MD Tablets day,30 minutes before breakfast and dinner Levoxyl Take 1 Tablet 90tabs Valencia Case, 200mcg Daily MD Tablets Phenytoin Sodium Take 3 Capsules 270caps Valencia Case, Extended Every Night MD 100mg Capsules Omeprazole take 1 capsule by 90caps Valencia Case, 40mg mouth once daily MD Capsules DR History Medications Amoxicillin/Clavulanate take one tablet 20tabs J01.90 Evie, 10/30/2018 - Potassium every 12 hours MD Valencia 01/10/2019 875-125mg Tablets Ipratropium Wheeler use 2 sprays in 15ml J00 Evie, 10/30/2018 - 0.06% Solution each nostril MD Valencia 01/10/2019 twice a day Dexamethasone take two tablets 10tabs H92.01 Evie, 10/30/2018 - 4mg Tablets every morning MD Valencia 01/10/2019 Ipratropium Wheeler use 2 sprays in 15ml J30.89 Gagen, 07/05/2018 - 0.06% Solution each nostril Jennifer, 09/18/2018 twice a day MS, 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, 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 Amoxicillin/Clavulanate take one tablet 20tabs J01.90 Gagen, 07/05/2018 - Potassium every 12 hours Jennifer, 09/18/2018 875-125mg Tablets MSLUIZAP-C, CNM Levocetirizine 1 by mouth every 30tabs Evie, 06/13/2018 - Dihydrochloride night MD Valencia 09/18/2018 5mg Tablets Prednisone 2 tabs (40 mg) 10tabs Evie, 06/13/2018 - 20mg Tablets daily for 5 days MD Valencia 07/05/2018 for shortness of breath/wheezing Rosuvastatin Calcium 1 tab by mouth 30tabs E78.5 Evie, 06/13/2018 - 5mg Tablets every evening MD Valencia 07/05/2018 Fluticasone Propionate spray 1-2 sprays 15.800ml Evie, 06/13/2018 - 50mcg/Act in each nostril MD Valencia 09/18/2018 Suspension once every day Amoxicillin 1 tab by mouth 14tabs Evie, 03/12/2018 - 500mg Tablets q12hrs x7 days MD Valencia 06/13/2018 Probiotic 1 by mouth every 30caps Evie, 03/12/2018 - Capsules day MD Valencia 06/13/2018 Dunia Lynn take two tablets 90caps Evie, 01/15/2018 - 100mg Capsules by mouth every 8 MD Valencia 03/12/2018 hours as needed for cough prn Vascepa 1 by mouth twice 60caps Evie, 01/15/2018 - 1gm Capsules a day MD Valencia 01/15/2018 Folic Acid 1 by mouth every 90tabs Evie, 01/15/2018 - 1mg Tablets day MD Valencia 07/05/2018 Methotrexate 4 tabs by mouth Evie, 01/15/2018 - 2.5mg Tablets every week hold MD Valencia 03/12/2018 Methocarbamol 2 tab by mouth 150tabs Evie, 01/15/2018 - 500mg Tablets in Am and 3 tabs MD Valencia 07/05/2018 by mouth in PM Nebulizer uses every 6 hrs J44.1 Evie, 11/16/2017 - Kit/Tubing/Mouthpiece as needed for MD Valencia 06/13/2018 Kit shortness of breath Cheratussin ac 5ml by mouth 236ml Evie, 11/16/2017 - 100-10mg/5ML Syrup every 4 hour as MD Valencia 01/15/2018 needed cough Prednisone 2 tabs (40 mg) 10tabs Evie, 11/16/2017 - 20mg Tablets daily for 5 days MD Valencia 01/15/2018 for shortness of breath/wheezing Amoxicillin 1 tab by mouth 20tabs Evie, 11/16/2017 - 500mg Tablets q12hrs x10 days MD Valencia 01/15/2018 Vascepa 2 caps by mouth 120caps Evie, 10/29/2017 - 1gm Capsules twice a day MD Valencia 12/17/2017 Vitamin D (Ergocalciferol) 1 tab by mouth 12caps Evie, 09/05/2017 - 83528Pplb every week for MD Valencia 06/13/2018 Capsules 12 weeks then stop and switch to daily maintenance Fenofibrate Micronized 1 tab by mouth 30caps Evie, 09/05/2017 - 67mg Capsules every day MD Valencia 12/06/2017 Prednisone 2 tabs (40 mg) 10tabs Evie, 08/17/2017 - 20mg Tablets daily for 5 days MD Valencia 09/05/2017 for shortness of breath/wheezing Azithromycin take 2 tabs on 6tabs Evie, 08/17/2017 - 250mg Tablets day 1 and take MD Valencia 09/05/2017 one tab days 2-5 Pravastatin Sodium 1 tab by mouth 30tabs Evie, 07/17/2017 - 40mg Tablets every day MD Valencia 10/15/2017 Azithromycin take two tablets 6tabs J06.9 Pompo, 05/30/2017 - 250mg Tablets by mouth on day Bella, Unknown one then take M.D. one tablet by mouth on day two, three, four, and five Spacer spacer to use 1units J06.9 Pompo, 05/30/2017 - with albuterol Bella, 09/05/2017 inhalor as M.D. directed Dunia Lynn take two tablets 60caps J06.9 Pompo, 05/30/2017 - 100mg Capsules by mouth every 8 Bella, Unknown hours as needed M.D. for cough Lidocaine Viscous rinse mouth with 200ml K14.0 Pompo, 05/30/2017 - 2% Solution 15 ML then spit Bella, 09/05/2017 out, every 8 M.D. hours as needed for mouth pain Fluconazole take one tablet 14tabs B37.81 Pompo, 05/30/2017 - 200mg Tablets by mouth every Bella, 09/05/2017 day for 14 days M.D. Amoxicillin/Clavulanate 1 tab by mouth 14tabs Evie, 05/25/2017 - Potassium q12hrs for 7 MD Valencia 05/30/2017 875-125mg Tablets days Vitamin D3 High Potency 2 tabs by mouth Evie, 05/02/2017 - 1000Unit every day MD Valencia 09/05/2017 Capsules Lipitor 1 tab by mouth 30tabs Evie, 05/02/2017 - 40mg Tablets every evening MD Valencia 07/17/2017 Methocarbamol 1-2 tabs by 30tabs Evie, 05/02/2017 - 750mg Tablets mouth once at MD Valencia 01/15/2018 night Augmentin 1 tab by mouth 20tabs H66.91 Sinai, 03/09/2017 - 875-125mg Tablets twice a day for Andras, 05/02/2017 10 days M.D. Gemfibrozil take one tablet 60tabs Evie, 01/10/2017 - 600mg Tablets by mouth twice a MD Valencia 05/02/2017 day,30 minutes before breakfast and dinner Calcitriol 1 cap by mouth Unknown - 5mg Capsules three x a day 05/02/2017 Proair HFA 2 - 4 8.500gm Pompo, - 108(90Base) mcg/Act inhalations Bella, 01/15/2018 Aerosol every 6 hours as M.D. needed, Hydrocodone-Acetaminophen prn Unknown - Tablets 09/05/2017 Folic Acid Calderon, - 1mg Tablets Dany, 12/17/2017 MD Methotrexate 4 tabs by mouth Calderon, - 2.5mg Tablets every week Dany, 12/17/2017 Immunizations CPT Code Status Date Vaccine Reaction Lot # [id number] Given 01/10/2019 Tdap injection [id number] Given 08/28/2017 MMR Vaccine, Live, For Subcutaneous Use [id number] Given 08/28/2017 MMR Vaccine, Live, For Subcutaneous Use none [id number] 02530 Given 06/26/2017 MMR Vaccine, Live, For Subcutaneous Use [id number] Given 01/10/2017 Pneumovax Injection [id number] Vital Signs Date Vital Result Comment 01/10/2019 9:30am BP Systolic Sitting Left Arm 120 mmHg BP Diastolic Sitting Left Arm 76 mmHg Body Temperature 96.7 F Heart Rate 84 /min Respiratory Rate 18 /min Height 63.5 inches 5'3.50" Weight 193.00 lb BMI (Body Mass Index) 33.6 kg/m2 BSA (Body Surface Area) 1.92 m2 [place] body weight in kilograms 53 kg O2 % BldC Oximetry 97 % Ra 10/30/2018 9:50am BP Systolic Sitting Left Arm 124 mmHg BP Diastolic Sitting Left Arm 80 mmHg Body Temperature 97.8 F Heart Rate 93 /min Respiratory Rate 24 /min Height 63.5 inches 5'3.50" Weight 207.00 lb BMI (Body Mass Index) 36.1 kg/m2 BSA (Body Surface Area) 1.97 m2 [place] body weight in kilograms 53 kg O2 % BldC Oximetry 97 % 09/18/2018 10:36am BP Systolic Sitting Left Arm 122 mmHg BP Diastolic Sitting Left Arm 82 mmHg Body Temperature 97.8 F Heart Rate 92 /min Respiratory Rate 18 /min Height 63.5 inches 5'3.50" Weight 209.00 lb BMI (Body Mass Index) 36.4 kg/m2 BSA (Body Surface Area) 1.98 m2 [place] body weight in kilograms 53 kg O2 % BldC Oximetry 97 % 07/05/2018 8:39am BP Systolic Sitting Left Arm 128 mmHg BP Diastolic Sitting Left Arm 74 mmHg Body Temperature 98.3 F Heart Rate 96 /min Respiratory Rate 20 /min Height 63.5 inches 5'3.50" Weight 207.00 lb BMI (Body Mass Index) 36.1 kg/m2 BSA (Body Surface Area) 1.97 m2 [place] body weight in kilograms 53 kg O2 % BldC Oximetry 97 % 06/13/2018 10:46am BP Systolic Sitting Left Arm 117 mmHg BP Diastolic Sitting Left Arm 72 mmHg Body Temperature 96.5 F Heart Rate 96 /min Respiratory Rate 16 /min Height 63.5 inches 5'3.50" Weight 206.00 lb BMI (Body Mass Index) 35.9 kg/m2 BSA (Body Surface Area) 1.97 m2 [place] body weight in kilograms 53 kg O2 % BldC Oximetry 98 % 03/12/2018 10:46am BP Systolic Sitting Left Arm 111 mmHg BP Diastolic Sitting Left Arm 72 mmHg Body Temperature 97.4 F Heart Rate 92 /min reg Respiratory Rate 30 /min Height 63.5 inches 5'3.50" Weight 199.00 lb BMI (Body Mass Index) 34.7 kg/m2 BSA (Body Surface Area) 1.94 m2 [place] body weight in kilograms 53 kg O2 % BldC Oximetry 96 % 01/15/2018 10:33am BP Systolic 118 mmHg BP Diastolic 73 mmHg Body Temperature 96.9 F Heart Rate 81 /min Respiratory Rate 18 /min Height 63.5 inches 5'3.50" Weight 201.50 lb BMI (Body Mass Index) 35.1 kg/m2 BSA (Body Surface Area) 1.95 m2 [place] body weight in kilograms 53 kg O2 % BldC Oximetry 97 % 11/16/2017 10:37am BP Systolic Sitting Right Arm 110 mmHg BP Diastolic Sitting Right Arm 79 mmHg Body Temperature 96.9 F Heart Rate 74 /min reg Respiratory Rate 30 /min Height 63.5 inches 5'3.50" Weight 200.00 lb BMI (Body Mass Index) 34.9 kg/m2 BSA (Body Surface Area) 1.95 m2 [place] body weight in kilograms 53 kg O2 % BldC Oximetry 96 % ra 09/05/2017 10:19am BP Systolic Sitting Right Arm 112 mmHg BP Diastolic Sitting Right Arm 68 mmHg Heart Rate 92 /min Respiratory Rate 20 /min Height 63.5 inches 5'3.50" Weight 201.00 lb BMI (Body Mass Index) 35.0 kg/m2 BSA (Body Surface Area) 1.95 m2 [place] body weight in kilograms 53 kg 08/17/2017 9:20am BP Systolic Sitting Right Arm 104 mmHg BP Diastolic Sitting Right Arm 75 mmHg Body Temperature 98.0 F Heart Rate 91 /min Height 63.5 inches 5'3.50" Weight 201.00 lb BMI (Body Mass Index) 35.0 kg/m2 BSA (Body Surface Area) 1.95 m2 [place] body weight in kilograms 53 kg O2 % BldC Oximetry 99 % 05/30/2017 7:57am BP Systolic Sitting Right Arm 120 mmHg BP Diastolic Sitting Right Arm 73 mmHg Body Temperature 98.1 F Heart Rate 86 /min Respiratory Rate 16 /min Height 63.5 inches 5'3.50" Weight 200.00 lb BMI (Body Mass Index) 34.9 kg/m2 BSA (Body Surface Area) 1.95 m2 [place] body weight in kilograms 53 kg O2 % BldC Oximetry 97 % 05/02/2017 9:31am BP Systolic 118 mmHg BP Diastolic 62 mmHg Heart Rate 86 /min Respiratory Rate 14 /min Height 63.5 inches 5'3.50" Weight 204.12 lb BMI (Body Mass Index) 35.6 kg/m2 BSA (Body Surface Area) 1.96 m2 [place] body weight in kilograms 53 kg O2 % BldC Oximetry 98 % 03/09/2017 10:54am BP Systolic 125 mmHg BP Diastolic 82 mmHg Body Temperature 96.4 F Heart Rate 79 /min Respiratory Rate 18 /min Height 63.5 inches 5'3.50" Weight 199.00 lb BMI (Body Mass Index) 34.7 kg/m2 BSA (Body Surface Area) 1.94 m2 [place] body weight in kilograms 53 kg O2 % BldC Oximetry 97 % 01/10/2017 2:38pm BP Systolic Sitting Right Arm 124 mmHg BP Diastolic Sitting Right Arm 72 mmHg Height 63.5 inches 5'3.50" Weight 197.00 lb BMI (Body Mass Index) 34.3 kg/m2 BSA (Body Surface Area) 1.93 m2 [place] body weight in kilograms 53 kg Results Test Date Facility Test Result H/L Range Note Comprehensive 09/06/2018 [facility] Glucose 95 mg/dL Normal 74-106 1 Metabolic Panel [address] [place] [address] [phone] BUN 10 mg/dL Normal 7-18 Creatinine 0.8 mg/dL Normal 0.6-1.3 Glom Filtration Rate, Estimate >60 mL/min >60 If >60 mL/min >60 2 BUN/Creat 12.5 ratio Sodium 138 mmol/L Normal 136-145 Potassium 4.3 mmol/L Normal 3.5-5.1 Chloride 104 mmol/L Normal 98-107 Carbon Dioxide 27 mmol/L Normal 21-32 Anion Gap 7 mEq/L Low 8-16 Calcium 9.2 mg/dL Normal 8.5-10.1 Total Protein 7.7 g/dL Normal 6.4-8.2 Albumin 4.1 g/dL Normal 3.4-5.0 Globulin 3.6 g/dL Normal 1.9-4.3 Alb/Glob 1.1 ratio Bilirubin,Total 0.2 mg/dL Normal 0.2-1.0 Sgot/Ast 12 U/L Low 15-37 3 SGPT/Alt 23 U/L Normal 12-78 Alkaline Phosphatase 182 U/L High 45-117 LDL Cholesterol 09/06/2018 [facility] Cholesterol 278 mg/dL High <200 4 Profile [address] [place] [address] [phone] Triglycerides 238 mg/dL High <150 5 HDL Cholesterol 57 mg/dL >40 6 LDL-Cholesterol 173 mg/dL < 100 7 Laboratory test 09/06/2018 [facility] Thyroid 0.74 Normal 0.30-4.20 finding [address] [facility] Stim uIU/[place] [address] Hormone [phone] Free T4 1.18 ng/dL Normal 0.76-1.46 Laboratory test 05/06/2018 [facility] Lipase 148 U/L Normal 56-289 finding [address] [place] [address] [phone] Liver Function 05/06/2018 [facility] Total Protein 7.6 g/dL Normal 6.4-8.2 Tests [address] [place] [address] [phone] Albumin 3.7 g/dL Normal 3.4-5.0 Globulin 3.9 g/dL Normal 1.9-4.3 Alb/Glob 0.9 ratio Bilirubin,Total 0.3 mg/dL Normal 0.2-1.0 Bilirubin,Direct < 0.1 mg/dL Normal 0.0-0.2 Bilirubin,Indirect 0.2 mg/dL Normal 0.0-0.9 Sgot/Ast 14 U/L Low 15-37 8 SGPT/Alt 25 U/L Normal 12-78 Alkaline Phosphatase 137 U/L High 45-117 Comprehensive 05/06/2018 [facility] Glucose 95 mg/dL Normal 74-106 Metabolic Panel [address] [place] [address] [phone] BUN 8 mg/dL Normal 7-18 Creatinine 0.7 mg/dL Normal 0.6-1.3 Glom Filtration Rate, Estimate >60 mL/min >60 If >60 mL/min >60 9 BUN/Creat 11.4 ratio Sodium 143 mmol/L Normal 136-145 Potassium 3.6 mmol/L Normal 3.5-5.1 Chloride 109 mmol/L High 98-107 Carbon Dioxide 25 mmol/L Normal 21-32 Anion Gap 9 mEq/L Normal 8-16 Calcium 9.1 mg/dL Normal 8.5-10.1 LDL Cholesterol 05/06/2018 [facility] Cholesterol 283 mg/dL High <200 10 Profile [address] [place] [address] [phone] Triglycerides 265 mg/dL High <150 11 HDL Cholesterol 53 mg/dL >40 12 LDL-Cholesterol 177 mg/dL < 100 13 Laboratory 05/06/2018 [facility] Vitamin 37.9 ng/mL 30.0-100.0 14, 15 test finding [address] D,25-[place] [address] [phone] Stool Culture 03/15/2018 [facility] Stool Culture NO ENTERIC 16, [address] [place]O <[place] [address] NOTE> [phone] . ................ <SEE NOTE> 18 Note: INCLUDES TESTING <SEE NOTE> 19 . PLESIOMONAS, CAM <SEE NOTE> 20 . ................ <SEE NOTE> 21 . YERSINIA AND VIB <SEE NOTE> 22 . SHOULD BE REQUES <SEE NOTE> 23 Shiga Toxin 1 Antigen SHIGA TOXIN 1 NO <SEE NOTE> 24 Shiga Toxin 2 Antigen SHIGA TOXIN 2 NO <SEE NOTE> 25 Smear For 03/15/2018 [facility] Smear For NO EOSINOPHILS S [address] WBC'S <SEE NOTE> [place] [address] [phone] Smear Source: STOOL Specimen Source: STOOL Laboratory test 03/15/2018 [facility] C. Difficile Negative for 27 finding [address] E Toxin B By PCR tox <[place] [address] NOTE> [phone] Ua RFX Micro & 03/12/2018 [facility] Urine Color YELLOW Yellow 28 Culture II [address] [place] [address] [phone] Urine Clarity CLEAR Clear Urine Glucose - Dipstick NEGATIVE mg/dL Negative Urine Bilirubin - Dipstick NEGATIVE Negative Urine Ketone NEGATIVE mg/dL Negative Urine Specific Cameron <=1.005 Low 1.010-1.030 Urine Blood NEGATIVE Negative Urine PH 6.5 Normal 6.5-7.5 Urine Protein - Dipstick NEGATIVE mg/dL Negative Urine Urobilinogen - Dipstick 0.2 E.U./dL Normal 0.2-1.0 Urine Nitrite - Dipstick NEGATIVE Negative Urine Leuk Esterase NEGATIVE Negative Source: URINE, CLEAN CAT <SEE NOTE> 29 Urine Culture 03/12/2018 [facility] Urine Culture URETHRAL LYNN [address] [place] [address] [phone] Quantity 10,000 - 50,000 <SEE NOTE> 30 Liver Function 01/24/2018 [facility] Total Protein 7.0 g/dL Normal 6.4-8.2 31 Tests [address] [place] [address] [phone] Albumin 3.6 g/dL Normal 3.4-5.0 Globulin 3.4 g/dL Normal 1.9-4.3 Alb/Glob 1.1 ratio Bilirubin,Total 0.3 mg/dL Normal 0.2-1.0 Bilirubin,Direct < 0.1 mg/dL Normal 0.0-0.2 Bilirubin,Indirect 0.2 mg/dL Normal 0.0-0.9 Sgot/Ast 11 U/L Low 15-37 32 SGPT/Alt 23 U/L Normal 12-78 Alkaline Phosphatase 158 U/L High 45-117 Laboratory test finding 01/24/2018 [facility] CK 78 U/L Normal 26-192 33 [address] [place] [address] [phone] BUN 6 mg/dL Low 7-18 34 Creatinine 0.8 mg/dL Normal 0.6-1.3 35 LDL Cholesterol 01/04/2018 [facility] Cholesterol 323 mg/dL High <200 36, 37 Profile [address] [place] [address] [phone] Triglycerides 507 mg/dL High <150 38 HDL Cholesterol 45 mg/dL >40 39 LDL-Cholesterol TNP mg/dL < 100 40 Laboratory 01/04/2018 [facility] Vitamin 23.7 Low 30.0-100.0 41 test finding [address]xy ng/[place] [address] [phone] Thyroid Stim Hormone 2.52 uIU/mL Normal 0.30-4.20 Free T4 0.99 ng/dL Normal 0.76-1.46 Liver Function 01/04/2018 [facility] Total Protein 7.3 g/dL Normal 6.4-8.2 Tests [address] [place] [address] [phone] Albumin 3.6 g/dL Normal 3.4-5.0 Globulin 3.7 g/dL Normal 1.9-4.3 Alb/Glob 1.0 ratio Bilirubin,Total 0.2 mg/dL Normal 0.2-1.0 Bilirubin,Direct < 0.1 mg/dL Normal 0.0-0.2 Bilirubin,Indirect 0.1 mg/dL Normal 0.0-0.9 Sgot/Ast 22 U/L Normal 15-37 SGPT/Alt 31 U/L Normal 12-78 Alkaline Phosphatase 163 U/L High 45-117 Laboratory test 01/04/2018 [facility] PTH,Intact 20 pg/mL 15-65 42 finding [address] [place], [place] [address] [phone] Protein 01/04/2018 [facility] Protein,Total,Se 6.7 g/dL 6.0-8.5 Electro.,S [address] [place] [address] [phone] Albumin 3.7 g/dL 2.9-4.4 Utxad-4-Ywduaagc 0.3 g/dL 0.0-0.4 Iuzko-7-Htmpnxkh 0.9 g/dL 0.4-1.0 Beta Globulin 1.0 g/dL 0.7-1.3 Gamma Globulin 0.8 g/dL 0.4-1.8 M-Frank Not Observed g/dL Not Observed Globulin, Total 3.0 g/dL 2.2-3.9 A/G Ratio 1.2 0.7-1.7 Please Note: (SEE NOTE) 43 P E Interpretation, Serum (SEE NOTE) 44 PDF . Marjan/Pe,Random 01/04/2018 [facility] Protein,Total,Urine 18.0 Not Urine [address] E mg/[place] [address] [phone] Albumin,U 100.0 % . Vhwid-9-Fpsmhfsm,U 0.0 % . Tkrab-7-Zojqubxo,U 0.0 % . Beta Globulin,U 0.0 % . Gamma Globulin,U 0.0 % . M-Frank,% Not Observed % Not Observed Immunofixation Result (SEE NOTE) 45 Note: (SEE NOTE) 46 PDF. (SEE NOTE) 47 Comprehensive 10/18/2017 [facility] Glucose 97 mg/dL Normal 74-106 Metabolic Panel [address] [place] [address] [phone] BUN 6 mg/dL Low 7-18 Creatinine 0.6 mg/dL Normal 0.6-1.3 Glom Filtration Rate, Estimate >60 mL/min >60 If >60 mL/min >60 48 BUN/Creat 10.0 ratio Sodium 142 mmol/L Normal 136-145 Potassium 3.6 mmol/L Normal 3.5-5.1 Chloride 108 mmol/L High 98-107 Carbon Dioxide 26 mmol/L Normal 21-32 Anion Gap 8 mEq/L Normal 8-16 Calcium 8.7 mg/dL Normal 8.5-10.1 LDL Cholesterol 10/18/2017 [facility] Cholesterol 289 mg/dL High <200 49 Profile [address] [place] [address] [phone] Triglycerides 518 mg/dL High <150 50 HDL Cholesterol 41 mg/dL >40 51 LDL-Cholesterol TNP mg/dL < 100 52 Liver Function 10/18/2017 [facility] Total Protein 7.0 g/dL Normal 6.4-8.2 Tests [address] [place] [address] [phone] Albumin 3.4 g/dL Normal 3.4-5.0 Globulin 3.6 g/dL Normal 1.9-4.3 Alb/Glob 0.9 ratio Bilirubin,Total 0.1 mg/dL Low 0.2-1.0 Bilirubin,Direct < 0.1 mg/dL Normal 0.0-0.2 Sgot/Ast 12 U/L Low 15-37 53 SGPT/Alt 25 U/L Normal 12-78 Alkaline Phosphatase 161 U/L High 45-117 Laboratory test 10/18/2017 [facility] CK 63 Normal 26-192 finding [address] [facility] U/[place] [address] [phone] Serum or plasma 09/21/2017 N2N/CCD Import Serum or plasma 3.6 3.4-5.0 albumin albumin measurement measurement (mass/volume) (mass/volume) Serum carbon 09/21/2017 N2N/CCD Import Serum carbon 24 21-32 dioxide dioxide measurement measurement RDW RBC Auto-Rto 09/21/2017 N2N/CCD Import RDW RBC Auto-Rto 13.5 11.7- 14 .4 RDW RBC Auto 09/21/2017 N2N/CCD Import RDW RBC Auto 47.2 High 3-47 Potassium 09/21/2017 N2N/CCD Import Potassium 3.7 3.5-5.1 SerPl-sCnc SerPl-sCnc Neutrophils/leuk 09/21/2017 N2N/CCD Import Neutrophils/leuk 53.6 40.4- 72 NFr Bld Auto NFr Bld Auto .8 Neutrophils # Bld 09/21/2017 N2N/CCD Import Neutrophils # Bld 3.77 1.8- 7.0 Auto Auto Monocytes/leuk NFr 09/21/2017 N2N/CCD Import Monocytes/leuk NFr 7.0 4.3- 13. Bld Auto Bld Auto 2 Lymphocytes/leuk 09/21/2017 N2N/CCD Import Lymphocytes/leuk 36.5 20.0- 42 NFr Bld Auto NFr Bld Auto .0 Globulin Ser 09/21/2017 N2N/CCD Import Globulin Ser 3.5 1.9-4.3 Calc-mCnc Calc-mCnc Eosinophil/leuk 09/21/2017 N2N/CCD Import Eosinophil/leuk 2.3 0.0-6.6 NFr Bld Auto NFr Bld Auto Serum or plasma 09/21/2017 N2N/CCD Import Serum or plasma 137 High 45- 117 alkaline alkaline phosphatase phosphatase measurement ( measurement (enzymatic activity/volume) Serum or plasma 09/21/2017 N2N/CCD Import Serum or plasma 17 15-37 aspartate aspartate aminotransferase aminotransferase measure measurement (enzymatic activity/volume) Serum or plasma 09/21/2017 N2N/CCD Import Serum or plasma 9.1 8.5-10. calcium calcium 1 measurement measurement (mass/volume) (mass/volume) Serum or plasma 09/21/2017 N2N/CCD Import Serum or plasma 0.7 0.6-1.3 creatinine creatinine measurement measurement (mass/volum (mass/volume) Serum or plasma 09/21/2017 N2N/CCD Import Serum or plasma 95 74-106 glucose glucose measurement measurement (mass/volume) (mass/volume) Serum or plasma 09/21/2017 N2N/CCD Import Serum or plasma 118 56-289 lipase measurement lipase measurement (enzymatic acti (enzymatic activity/volume) Serum or plasma 09/21/2017 N2N/CCD Import Serum or plasma 7.1 6.4-8.2 protein protein measurement measurement (mass/volume) (mass/volume) Serum or plasma 09/21/2017 N2N/CCD Import Serum or plasma 0.2 0.2-1.0 total bilirubin total bilirubin measurement (mass/ measurement (mass/volume) Serum or plasma 09/21/2017 N2N/CCD Import Serum or plasma 7 7-18 urea nitrogen urea nitrogen measurement measurement (mass/vo (mass/volume) Serum sodium 09/21/2017 N2N/CCD Import Serum sodium 143 136-145 measurement measurement Automated urine 09/21/2017 N2N/CCD Import Automated urine None 0-2 sediment sediment Seen erythrocyte count erythrocyte count by micr by microscopy (number/high power field) Albumin/Glob SerPl 09/21/2017 N2N/CCD Import Albumin/Glob SerPl 1.0 Alt SerPl-cCnc 09/21/2017 N2N/CCD Import Alt SerPl-cCnc 22 12-78 CBS W/Automated 09/21/2017 [facility] White Blood Count 7.0 Normal 3.1-10. [address] K/uL 7 [place], [place] [id number] [phone] Red Blood Count 4.66 M/uL Normal 3.90-5.40 Hemoglobin 15.3 gm/dL Normal 11.6-15.8 Hematocrit 45.2 % Normal 36.0-46.1 Mean Cell Volume 97.0 fl Normal 80.9-99.0 Mean Corpuscular HGB 32.8 pg High 25.9-32.7 Mean Corpuscular HGB Conc 33.8 g/dL Normal 30.8-34.3 Platelet Count 249 K/uL Normal 155-360 Red Cell Distri Width SD 47.2 fl High 3-47 Red Cell Distri Width %CV 13.5 % Normal 11.7-14.4 Mean Platelet Volume 9.7 fL Normal 8.9-12.4 Neut% 53.6 % Normal 40.4-72.8 Lymph % 36.5 % Normal 20.0-42.0 [place] % 7.0 % Normal 4.3-13.2 Eo% 2.3 % Normal 0.0-6.6 Bas% 0.6 % Normal 0.0-1.1 Neut# 3.77 K/uL Normal 1.8-7.0 Lymph # 2.56 K/uL Normal 1.0-4.0 [place] # 0.49 K/uL Normal 0.3-0.9 Eos # 0.16 K/uL Normal 0.0-0.5 Baso # 0.04 K/uL Normal 0.0-0.1 pH Ur Strip.auto 09/21/2017 N2N/CCD Import pH Ur Strip.auto 6.0 Low 6.5- 7.5 Urobilinogen Ur 09/21/2017 N2N/CCD Import Urobilinogen Ur 0.2 0.2-1.0 Strip-aCnc Strip-aCnc Urine total 09/21/2017 N2N/CCD Import Urine total Negative Negative bilirubin bilirubin detection by detection by automated test automated test strip Urine hemoglobin 09/21/2017 N2N/CCD Import Urine hemoglobin Negative Negative detection by detection by automated test automated test strip strip Urine glucose 09/21/2017 N2N/CCD Import Urine glucose Negative Negative measurement by measurement by automated test automated test strip strip (mass/volume) Urine appearance 09/21/2017 N2N/CCD Import Urine appearance Clear Clear determination determination Unloinc 09/21/2017 N2N/CCD Import Unloinc Culture To Follow Prot Ur 09/21/2017 N2N/CCD Import Prot Ur Negative Negative Strip.auto-mCnc Strip.auto-mCnc Nitrite Ur Ql 09/21/2017 N2N/CCD Import Nitrite Ur Ql Positive High Negative Strip.auto Strip.auto Leukocyte 09/21/2017 N2N/CCD Import Leukocyte Trace High Negative esterase Ur Ql esterase Ur Ql Strip.auto Strip.auto Ketones Ur 09/21/2017 N2N/CCD Import Ketones Ur Negative Negative Strip.auto-mCnc Strip.auto-mCnc Epithelial cells 09/21/2017 N2N/CCD Import Epithelial cells Few None Seen detection in detection in urine sediment by urine sediment li by light microscopy Color Ur 09/21/2017 N2N/CCD Import Color Ur Yellow Yellow Bacteria 09/21/2017 N2N/CCD Import Bacteria Moderate High None Seen detection in detection in urine sediment by urine sediment light micr by light microscopy Chloride 09/21/2017 N2N/CCD Import Chloride 112 High 98-107 SerPl-sCnc SerPl-sCnc Blood monocytes 09/21/2017 N2N/CCD Import Blood monocytes 0.49 0.3-0.9 automated count automated count (number/volume) (number/volume) Blood leukocytes 09/21/2017 N2N/CCD Import Blood leukocytes 7.0 3.1- 10.7 automated count automated count (number/volume) (number/volume) Blood hemoglobin 09/21/2017 N2N/CCD Import Blood hemoglobin 15.3 11.6- 15.8 measurement measurement (mass/volume) (mass/volume) Blood 09/21/2017 N2N/CCD Import Blood 4.66 3.90-5.40 erythrocytes erythrocytes automated count automated count (number/volume) (number/volume) Basophils/leuk 09/21/2017 N2N/CCD Import Basophils/leuk 0.6 0.0-1.1 NFr Bld Auto NFr Bld Auto BUN/Creat SerPl 09/21/2017 N2N/CCD Import BUN/Creat SerPl 10.0 Automated 09/21/2017 N2N/CCD Import Automated 97.0 80.9-99.0 erythrocyte mean erythrocyte mean corpuscular corpuscular volume volume Automated 09/21/2017 N2N/CCD Import Automated 33.8 30.8-34.3 erythrocyte mean erythrocyte mean corpuscular corpuscular hemoglobin hemoglobin concentration measurement (mass/volume) Automated 09/21/2017 N2N/CCD Import Automated 32.8 High 25.9-32.7 erythrocyte mean erythrocyte mean corpuscular corpuscular hemoglobin hemoglobin (mass per erythrocyte) Automated blood 09/21/2017 N2N/CCD Import Automated blood 9.7 8.9-12.4 platelet mean platelet mean volume volume measurement measurement Automated blood 09/21/2017 N2N/CCD Import Automated blood 249 155-360 platelet count platelet count Automated blood 09/21/2017 N2N/CCD Import Automated blood 2.56 1.0-4.0 lymphocyte count lymphocyte count (number/volume) (number/volume) Anion Gap 09/21/2017 N2N/CCD Import Anion Gap 7 Low 8-16 SerPl-sCnc SerPl-sCnc Automated blood 09/21/2017 N2N/CCD Import Automated blood 0.04 0.0-0.1 basophil count basophil count (count/volume) (count/volume) Automated blood 09/21/2017 N2N/CCD Import Automated blood 0.16 0.0-0.5 eosinophil count eosinophil count Automated blood 09/21/2017 N2N/CCD Import Automated blood 45.2 36.0- 46.1 hematocrit hematocrit (volume fraction) (volume fraction) Comprehensive 08/28/2017 [facility] Glucose 83 mg/dL Normal 74-106 55 Metabolic Panel [address] [place], [place] [id number] [phone] BUN 7 mg/dL Normal 7-18 Creatinine 0.6 mg/dL Normal 0.6-1.3 Glom Filtration Rate, Estimate >60 mL/min >60 If >60 mL/min >60 56 BUN/Creat 11.6 ratio Sodium 143 mmol/L Normal 136-145 Potassium 3.9 mmol/L Normal 3.5-5.1 Chloride 108 mmol/L High 98-107 Carbon Dioxide 29 mmol/L Normal 21-32 Anion Gap 6 mEq/L Low 8-16 Calcium 8.9 mg/dL Normal 8.5-10.1 Total Protein 6.9 g/dL Normal 6.4-8.2 Albumin 3.6 g/dL Normal 3.4-5.0 Globulin 3.3 g/dL Normal 1.9-4.3 Alb/Glob 1.1 ratio Bilirubin,Total 0.2 mg/dL Normal 0.2-1.0 Sgot/Ast 8 U/L Low 15-37 57 SGPT/Alt 23 U/L Normal 12-78 Alkaline Phosphatase 160 U/L High 45-117 Laboratory test 08/28/2017 [facility] Vitamin 16.1 Low 30.0-100.0 [address] D,25-Hydroxy ng/[place] [address] [phone] LDL Cholesterol 08/28/2017 [facility] Cholesterol 269 High <200 [address] mg/[place] [address] [phone] Triglycerides 471 mg/dL High <150 60 HDL Cholesterol 48 mg/dL >40 61 LDL-Cholesterol TNP mg/dL < 100 62 CBS W/Automated 08/28/2017 [facility] White Blood 6.5 K/uL Normal 3.1-10.[address] [place] [address] [phone] Red Blood Count 4.52 M/uL Normal 3.90-5.40 Hemoglobin 14.7 gm/dL Normal 11.6-15.8 Hematocrit 45.3 % Normal 36.0-46.1 Mean Cell Volume 100.2 fl High 80.9-99.0 Mean Corpuscular HGB 32.5 pg Normal 25.9-32.7 Mean Corpuscular HGB Conc 32.5 g/dL Normal 30.8-34.3 Platelet Count 299 K/uL Normal 155-360 Red Cell Distri Width SD 50.6 fl High 3-47 Red Cell Distri Width %CV 14.1 % Normal 11.7-14.4 Mean Platelet Volume 10.5 fL Normal 8.9-12.4 Neut% 50.5 % Normal 40.4-72.8 Lymph % 36.4 % Normal 20.0-42.0 [place] % 8.9 % Normal 4.3-13.2 Eo% 3.1 % Normal 0.0-6.6 Bas% 1.1 % Normal 0.0-1.1 Neut# 3.31 K/uL Normal 1.8-7.0 Lymph # 2.38 K/uL Normal 1.0-4.0 [place] # 0.58 K/uL Normal 0.3-0.9 Eos # 0.20 K/uL Normal 0.0-0.5 Baso # 0.07 K/uL Normal 0.0-0.1 Serum or plasma 08/28/2017 N2N/CCD Import Serum or plasma 16.1 Low 30.0- 100.0 25-hydroxyvitamin D 25-hydroxyvitamin D measurement (m measurement (mass/volume) Serum or plasma 08/28/2017 N2N/CCD Import Serum or plasma 48 >40 cholesterol in HDL cholesterol in HDL measurement (ma measurement (mass/volume) Serum or plasma 08/28/2017 N2N/CCD Import Serum or plasma 269 High <200 cholesterol cholesterol measurement measurement (mass/volu (mass/volume) Serum or plasma 08/28/2017 N2N/CCD Import Serum or plasma 471 High <150 triglyceride triglyceride measurement measurement (mass/vol (mass/volume) Throat Culture 08/17/2017 [facility] Throat Culture NORMAL 63, Complete [address] Complete THROAT 64 [place] [address] [place] <SEE [phone] NOTE> Bacterial throat 08/17/2017 N2N/CCD Import Bacterial throat Normal culture culture Throat [place] Laboratory test 07/13/2017 [facility] Rheumatoid Factor <10 <14 65 finding Qnt IU/mL Sed Rate - Esr 23 mm/hr High <20 Treasure 07/13/2017 [facility] Treasure Homogen Titr Ser <50 1/dil 0-49 Treasure Speckled Titr Ser 50 1/dil High 0-49 Treasure Rim Titr Ser <50 1/dil 0-49 Treasure nucleolar Titr Ser <50 1/dil 0-49 Whitney SS-A Ab Ser If-aCnc 24 [AU]/mL 0-99 Whitney SS-B Ab Ser If-aCnc 10 [AU]/mL 0-99 Whitney SM Ab Ser If-aCnc 8 [AU]/mL 0-99 Whitney [employer] Ab Ser If-aCnc 18 U/ML 0-99 Whitney Scl70 Ab Ser-aCnc 6 [AU]/mL 0-99 Whitney Jo1 Ab Ser If-aCnc 12 [AU]/mL 0-99 dsDNA Ab Ser If-aCnc 5 [IU]/mL 0-99 Centromere Ab Ser-aCnc 12 [AU]/mL 0-99 Histone IgG Ser-aCnc 18 [AU]/mL 0-99 Serum 05/31/2017 N2N/CCD Import Serum endomysium Negative Negative endomysium IgA IgA antibody antibody detection detection Serum gliadin 05/31/2017 N2N/CCD Import Serum gliadin 3 0-19 peptide IgA peptide IgA antibody assay antibody assay (units/vo (units/volume) Serum gliadin 05/31/2017 N2N/CCD Import Serum gliadin 3 0-19 peptide IgG peptide IgG antibody assay antibody assay (units/vo (units/volume) Serum or plasma 05/31/2017 N2N/CCD Import Serum or plasma 137 87-352 IgA measurement IgA measurement (mass/volume) (mass/volume) HIV Screen 4TH 05/31/2017 [facility] HIV Screen 4th Non Reactive Non 66, Gen Reflex [address] [facility] Generation wRfx Reactive 67 [place] [address] [phone] Celiac Disease 05/31/2017 [facility] Immunoglobulin A 137 mg/dL 87-352 68 Comp AB Profile [address] [place], [place] [id number] [phone] Antigliadin Abs, IgG 3 units 0-19 69 Antigliadin Abs, IgA 3 units 0-19 70 Endomysial IgA Antibody Negative Negative t-Transglutaminase IgA <2 U/mL 0-3 71 t-Transglutaminase IgG <2 U/mL 0-5 72 Vitamin B12 And 05/31/2017 [facility] Vitamin B12 385 pg/mL Normal 193-986 Folate [address] [place] [address] [phone] Folic Acid 4.5 ng/mL Normal 3.1-17.5 Laboratory 05/31/2017 [facility] Varicella-Zoster 145 Low Immune 73 test finding [address] Virus IgG Ab index >165 [place] [address] [phone] Rubella IgG Antibody 6.18 index Immune >0.99 74 Rubeola Antibodies, Igg <25.0 AU/mL Low Immune >29.9 75 Mumps Antibodies, Igg 76.5 AU/mL Immune >10.9 76 Hepatitis B Surface Antibody Non Reactive . 77 Hepatitis B Surface Antigen Negative Negative Hepatitis B virus 05/31/2017 N2N/CCD Import Hepatitis B Non Reactive . surface Ab virus surface Ab [Presence] in [Presence] in Serum Serum Serum mumps virus 05/31/2017 N2N/CCD Import Serum mumps 76.5 Immune IgG antibody virus IgG >10.9 assay antibody assay (units/volume (units/volume) Serum or plasma 05/31/2017 N2N/CCD Import Serum or plasma 4.5 3.1-17.5 folate folate measurement measurement (mass/volume) (mass/volume) Serum or plasma 05/31/2017 N2N/CCD Import Serum or plasma 385 193-986 vitamin B12 vitamin B12 measurement measurement (mass/volu (mass/volume) Serum rubella 05/31/2017 N2N/CCD Import Serum rubella 6.18 Immune virus IgG virus IgG >0.99 antibody assay by antibody assay immunoas by immunoassay (units/volume) Respiratory 05/31/2017 [facility] Gram Stain <25 WBC/LPF Culture W/Gram St [address] [place] [address] [phone] Gram Stain <10 SQUAMOUS EPI <SEE NOTE> 78 Gram Stain RARE GRAM POSITI <SEE NOTE> 79 Respiratory Culture YEAST LIKE ORGAN <SEE NOTE> Abnormal 80 Quantity MODERATE 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 <SEE NOTE> 81 Quantity MODERATE Aerobic bacterial 05/31/2017 N2N/CCD Import Aerobic bacterial Organism: respiratory respiratory Respiratory [place] culture culture Aerobic bacterial respiratory culture Organism: Yeast Like Organism Laboratory test 05/30/2017 [facility] Treponema Negative Negative 82, [address] [place] [address] [place] [phone] Gamma Glutamyl Transpeptidase 76 U/L Normal 5-85 Throat Culture 05/30/2017 [facility] Throat Culture NORMAL 84, Complete [address] Complete THROAT [place] 85 [place] [address] <SEE [phone] NOTE> Serum or plasma 05/29/2017 N2N/CCD Import Serum or 96 < 100 cholesterol in plasma LDL measurement cholesterol in by LDL measurement by calculation (mass/volume) Serum or plasma 05/29/2017 N2N/CCD Import Serum or 1.11 0.76-1 free thyroxine plasma free .46 (FT4) thyroxine measurement ( (FT4) measurement (mass/volume) TSH SerPl-aCnc 05/29/2017 N2N/CCD Import TSH [facility] 2.78 0.30-4 .20 Comprehensive 05/29/2017 [facility] Glucose 79 mg/dL Normal 74-106 Metabolic Panel [address] [place] [address] [phone] BUN 6 mg/dL Low 7-18 Creatinine 0.7 mg/dL Normal 0.6-1.3 Glom Filtration Rate, Estimate >60 mL/min >60 If >60 mL/min >60 86 BUN/Creat 8.5 ratio Sodium 139 mmol/L Normal 136-145 Potassium 4.0 mmol/L Normal 3.5-5.1 Chloride 106 mmol/L Normal 98-107 Carbon Dioxide 28 mmol/L Normal 21-32 Anion Gap 5 mEq/L Low 8-16 Calcium 9.4 mg/dL Normal 8.5-10.1 Total Protein 6.8 g/dL Normal 6.4-8.2 Albumin 3.6 g/dL Normal 3.4-5.0 Globulin 3.2 g/dL Normal 1.9-4.3 Alb/Glob 1.1 ratio Bilirubin,Total 0.2 mg/dL Normal 0.2-1.0 Sgot/Ast 12 U/L Low 15-37 87 SGPT/Alt 22 U/L Normal 12-78 Alkaline Phosphatase 160 U/L High 45-117 CBS W/Automated 05/29/2017 [facility] White Blood 8.1 K/uL Normal 3.1-10.[address] [place] [address] [phone] Red Blood Count 4.41 M/uL Normal 3.90-5.40 Hemoglobin 14.2 gm/dL Normal 11.6-15.8 Hematocrit 43.3 % Normal 36.0-46.1 Mean Cell Volume 98.2 fl Normal 80.9-99.0 Mean Corpuscular HGB 32.2 pg Normal 25.9-32.7 Mean Corpuscular HGB Conc 32.8 g/dL Normal 30.8-34.3 Platelet Count 261 K/uL Normal 150-400 Red Cell Distri Width SD 49.4 fl High 3-47 Red Cell Distri Width %CV 14.1 % Normal 11.7-14.4 Mean Platelet Volume 10.7 fL Normal 8.9-12.4 Neut% 58.4 % Normal 40.4-72.8 Lymph % 30.9 % Normal 20.0-42.0 [place] % 7.0 % Normal 4.3-13.2 Eo% 3.0 % Normal 0.0-6.6 Bas% 0.7 % Normal 0.0-1.1 Neut# 4.73 K/uL Normal 1.8-7.0 Lymph # 2.51 K/uL Normal 1.0-4.0 [place] # 0.57 K/uL Normal 0.3-0.9 Eos # 0.24 K/uL Normal 0.0-0.5 Baso # 0.06 K/uL Normal 0.0-0.1 Laboratory test 05/29/2017 [facility] Thyroid 2.78 Normal 0.30-4.[address] Stim uIU/[place] [address] Hormone [phone] Free T4 1.11 ng/dL Normal 0.76-1.46 LDL Cholesterol 05/29/2017 [facility] Cholesterol 208 mg/dL High <200 [address] [place], [place] [id number] [phone] Triglycerides 308 mg/dL High <150 89 HDL Cholesterol 50 mg/dL >40 90 LDL-Cholesterol 96 mg/dL < 100 91 Laboratory test 04/19/2017 [facility] Vitamin 23.9 Low 30.0-100.0 92, finding [address] D,25-Hydroxy ng/mL 93 [place], [place] [address] [phone] Comprehensive 04/19/2017 [facility] Glucose 86 Normal 74-106 Metabolic Panel [address] mg/dL [place], [place] [address] [phone] BUN 6 mg/dL Low 7-18 Creatinine 0.7 mg/dL Normal 0.6-1.3 Glom Filtration Rate, Estimate >60 mL/min >60 If >60 mL/min >60 94 BUN/Creat 8.5 ratio Sodium 142 mmol/L Normal 136-145 Potassium 3.8 mmol/L Normal 3.5-5.1 Chloride 111 mmol/L High 98-107 Carbon Dioxide 25 mmol/L Normal 21-32 Anion Gap 6 mEq/L Low 8-16 Calcium 9.4 mg/dL Normal 8.5-10.1 Total Protein 7.7 g/dL Normal 6.4-8.2 Albumin 3.8 g/dL Normal 3.4-5.0 Globulin 3.9 g/dL Normal 1.9-4.3 Alb/Glob 1.0 ratio Bilirubin,Total 0.2 mg/dL Normal 0.2-1.0 Sgot/Ast 8 U/L Low 15-37 95 SGPT/Alt 19 U/L Normal 12-78 Alkaline Phosphatase 141 U/L High 45-117 CBS W/Automated 04/19/2017 [facility] White Blood 7.3 K/uL Normal 3.1-10.[address] Count [place], [place] [address] [phone] Red Blood Count 4.36 M/uL Normal 3.90-5.40 Hemoglobin 14.2 gm/dL Normal 11.6-15.8 Hematocrit 41.4 % Normal 36.0-46.1 Mean Cell Volume 95.0 fl Normal 80.9-99.0 Mean Corpuscular HGB 32.6 pg Normal 25.9-32.7 Mean Corpuscular HGB Conc 34.3 g/dL Normal 30.8-34.3 Platelet Count 247 K/uL Normal 150-400 Red Cell Distri Width SD 44.3 fl Normal 3-47 Red Cell Distri Width %CV 13.1 % Normal 11.7-14.4 Mean Platelet Volume 10.4 fL Normal 8.9-12.4 Neut% 61.5 % Normal 40.4-72.8 Lymph % 28.3 % Normal 20.0-42.0 [place] % 6.5 % Normal 4.3-13.2 Eo% 3.0 % Normal 0.0-6.6 Bas% 0.7 % Normal 0.0-1.1 Neut# 4.46 K/uL Normal 1.8-7.0 Lymph # 2.05 K/uL Normal 1.0-4.0 [place] # 0.47 K/uL Normal 0.3-0.9 Eos # 0.22 K/uL Normal 0.0-0.5 Baso # 0.05 K/uL Normal 0.0-0.1 Laboratory 04/19/2017 [facility] Thyroid Stim 0.42 Normal 0.30-4.20 test finding [address] Hormone uIU/[place] [address] [phone] LDL 04/19/2017 [facility] Cholesterol 296 mg/dL High <200 [address] Profile [place], [place] [address] [phone] Triglycerides 353 mg/dL High <150 97 HDL Cholesterol 48 mg/dL >40 98 LDL-Cholesterol 177 mg/dL < 100 99 TSH SerPl-aCnc 01/29/2017 N2N/CCD Import TSH SerPl-aCnc 1.22 0.30-4.20 Serum or plasma 01/29/2017 N2N/CCD Import Serum or plasma 1.14 0.76- 1.46 thyroxine (T4) free thyroxine (T4) free measurement (m measurement (mass/volume) 1 E03.9,E78.5 2 Note: Persistent reduction for 3 months [...] normal populations. Clinical correlation is suggested. 4 Reference Guidelines*: Desirable: ........... < 200 mg/dL Borderline High: ..... 200-239 mg/dL High: ................ >=240 mg/dL * The National Cholesterol Education Program (NCEP) 5 Reference Guidelines*: Normal: ............. < 150 mg/dL Borderline High: .... 150-199 mg/dL High: ............... 200-499 mg/dL Very High: .......... > 500 mg/dL * Source: National Cholesterol Education Program (NCEP) 6 Reference Guidelines*: Low HDL: ..... < 40 mg/dL Normal: ..... 40-60 mg/dL Desirable: ... > 60 mg/dL *The National Cholesterol Education Program(NCEP) 7 Reference Guidelines*: Optimal:........... <100 mg/dL Near Optimal....... 100-129 mg/dL Borderline High.... 130-159 mg/dL High............... 160-189 mg/dL Very High.......... >=190 mg/dL * Source: National Cholesterol Education Program (NCEP) 8 Values below the stated reference ranges of AST and ALT can be seen in normal populations. Clinical correlation is suggested. 9 Note: Persistent reduction for 3 months or more in an eGFR <60 mL/min/1.73 m2 defines CKD. Patients with eGFR values >/=60 mL/min/1.73 m2 may also have CKD if evidence of persistent proteinuria is present. The original MDRD equation for estimated GFR is not valid for patients less than 18 years of age. Additional information may be found at www.kdoqi.org. 10 Reference Guidelines*: Desirable: ........... < 200 mg/dL Borderline High: ..... 200-239 mg/dL High: ................ >=240 mg/dL * The National Cholesterol Education Program (NCEP) 11 Reference Guidelines*: Normal: ............. < 150 mg/dL Borderline High: .... 150-199 mg/dL High: ............... 200-499 mg/dL Very High: .......... > 500 mg/dL * Source: National Cholesterol Education Program (NCEP) 12 Reference Guidelines*: Low HDL: ..... < 40 mg/dL Normal: ..... 40-60 mg/dL Desirable: ... > 60 mg/dL *The National Cholesterol Education Program(NCEP) 13 Reference Guidelines*: Optimal:........... <100 mg/dL Near Optimal....... 100-129 mg/dL Borderline High.... 130-159 mg/dL High............... 160-189 mg/dL Very High.......... >=190 mg/dL * Source: National Cholesterol Education Program (NCEP) 14 E78.5,E55.9,R10.10,R19.7,R11.0 15 Vitamin D deficiency has been defined by the [place] [employer] and an Endocrine Society practice guideline as a level of serum 25-OH vitamin D less than 20 ng/mL (1,2). The Endocrine Society went on to further define vitamin D insufficiency as a level between 21 and 29 ng/mL (2). 1. IOM ([place] [employer]). 2010. Dietary reference intakes for calcium and D. [place]: The National Academies Press. 2. Shelby MF, Inez NC, Pablo RUSSELL, et al. Evaluation, treatment, and prevention of vitamin D deficiency: an Endocrine Society clinical practice guideline. JCEM. 2011 Jan; 96(7):1911-30. Performed at: RN - [facility] [address] [id number] Patcher Helper: Francine Khan MD, Phone: [phone] 16 H86.8 17 NO ENTERIC PATHOGENS ISOLATED 18 ................................................... 19 INCLUDES TESTING FOR SALMONELLA, SHIGELLA, AEROMONAS, 20 PLESIOMONAS, CAMPYLOBACTER, AND E. COLI 0157:H7 21 ................................................... 22 YERSINIA AND VIBRIO ARE NOT ROUTINELY SCREENED FOR AND 23 SHOULD BE REQUESTED SEPARATELY 24 SHIGA TOXIN 1 NOT DETECTED 25 SHIGA TOXIN 2 NOT DETECTED Method: ImmunoCard STAT/EHEC Rapid Immunochromatographic Assay 26 NO EOSINOPHILS SEEN 27 Negative for toxigenic C. difficile by PCR 28 R30.0 29 URINE, CLEAN CATCH 30 10,000 - 50,000 CFU/mL 31 R94.5,E78.5,M79.1 32 Values below the stated reference ranges of AST and ALT can be seen in normal populations. Clinical correlation is suggested. 33 BUN CRE ADDED VEWRBAL FROM OFFICE REQ TO FOLLOW REPORT FAXED PER REQUEST- 01/25/18,([facility]) 34 BUN CRE ADDED VEWRBAL FROM OFFICE REQ TO FOLLOW REPORT FAXED PER REQUEST- 01/25/18,([facility]) 35 BUN CRE ADDED VEWRBAL FROM OFFICE REQ TO FOLLOW REPORT FAXED PER REQUEST- 01/25/18,([facility]) 36 K76.1,N28.1, (R94.5,E03.9,E55.9) 37 Reference Guidelines*: Desirable: ........... < 200 mg/dL Borderline High: ..... 200-239 mg/dL High: ................ >=240 mg/dL * The National Cholesterol Education Program (NCEP) 38 Reference Guidelines*: Normal: ............. < 150 mg/dL Borderline High: .... 150-199 mg/dL High: ............... 200-499 mg/dL Very High: .......... > 500 mg/dL * Source: National Cholesterol Education Program (NCEP) 39 Reference Guidelines*: Low HDL: ..... < 40 mg/dL Normal: ..... 40-60 mg/dL Desirable: ... > 60 mg/dL *The National Cholesterol Education Program(NCEP) 40 (LDL CANNOT BE CALCULATED FOR TRIGS >400 mg/dL) 41 Vitamin D deficiency has been defined by the [place] [employer] and an Endocrine Society practice guideline as a level of serum 25-OH vitamin D less than 20 ng/mL (1,2). The Endocrine Society went on to further define vitamin D insufficiency as a level between 21 and 29 ng/mL (2). 1. IOM ([place] [employer]). 2010. Dietary reference intakes for calcium and D. [place]: The National Academies Press. 2. Shelby MF, Inez MAKI, Pablo RUSSELL, et al. Evaluation, treatment, and prevention of vitamin D deficiency: an Endocrine Society clinical practice guideline. JCEM. 2010; 96(7):1911-30. Performed at: [facility] [address] [id number] Patcher Helper: Francine Khan MD, Phone: [phone] 42 Performed at: [facility] [address] [id number] Patcher Helper: Francine Khan MD, Phone: [phone] 43 Protein electrophoresis scan will follow via computer, mail, or keeper helper delivery. 44 The SPE pattern appears essentially unremarkable. Evidence of monoclonal protein is not apparent. 45 An apparent normal immunofixation pattern. 46 Protein electrophoresis scan will follow via computer, mail, or keeper helper delivery. 47 Performed at: [facility] [address] [id number] Patcher Helper: Francine Khan MD, Phone: [phone] 48 Note: Persistent reduction for 3 months or more in an eGFR <60 mL/min/1.73 m2 defines CKD. Patients with eGFR values >/=60 mL/min/1.73 m2 may also have CKD if evidence of persistent proteinuria is present. The original MDRD equation for estimated GFR is not valid for patients less than 18 years of age. Additional information may be found at www.kdoqi.org. 49 Reference Guidelines*: Desirable: ........... < 200 mg/dL Borderline High: ..... 200-239 mg/dL High: ................ >=240 mg/dL * The National Cholesterol Education Program (NCEP) 50 Reference Guidelines*: Normal: ............. < 150 mg/dL Borderline High: .... 150-199 mg/dL High: ............... 200-499 mg/dL Very High: .......... > 500 mg/dL * Source: National Cholesterol Education Program (NCEP) 51 Reference Guidelines*: Low HDL: ..... < 40 mg/dL Normal: ..... 40-60 mg/dL Desirable: ... > 60 mg/dL *The National Cholesterol Education Program(NCEP) 52 (LDL CANNOT BE CALCULATED FOR TRIGS >400 mg/dL) 53 Values below the stated reference ranges of AST and ALT can be seen in normal populations. Clinical correlation is suggested. 54 SICK FOR TWO DAYS, CAN'T HOLD ANY FOOD DOWN 55 R94.5,E55.9 56 Note: Persistent reduction for 3 months or more in an eGFR <60 mL/min/1.73 m2 defines CKD. Patients with eGFR values >/=60 mL/min/1.73 m2 may also have CKD if evidence of persistent proteinuria is present. The original MDRD equation for estimated GFR is not valid for patients less than 18 years of age. Additional information may be found at www.kdoqi.org. 57 Values below the stated reference ranges of AST and ALT can be seen in normal populations. Clinical correlation is suggested. 58 Vitamin D deficiency has been defined by the [place] [employer] and an Endocrine Society practice guideline as a level of serum 25-OH vitamin D less than 20 ng/mL (1,2). The Endocrine Society went on to further define vitamin D insufficiency as a level between 21 and 29 ng/mL (2). 1. IOM ([place] [employer]). 2010. Dietary reference intakes for calcium and D. [place]: The National Academies Press. 2. Shelby MF, Inez [place], Pablo RUSSELL, et al. Evaluation, treatment, and prevention of vitamin D deficiency: an Endocrine Society clinical practice guideline. JCEM. 2010; 96(7):1911-30. Performed at: RN - [facility] [address], [place], [place] [id number] Patcher Helper: Francine Khan MD, Phone: [phone] 59 Reference Guidelines*: Desirable: ........... < 200 mg/dL Borderline High: ..... 200-239 mg/dL High: ................ >=240 mg/dL * The National Cholesterol Education Program (NCEP) 60 Reference Guidelines*: Normal: ............. < 150 mg/dL Borderline High: .... 150-199 mg/dL High: ............... 200-499 mg/dL Very High: .......... > 500 mg/dL * Source: National Cholesterol Education Program (NCEP) 61 Reference Guidelines*: Low HDL: ..... < 40 mg/dL Normal: ..... 40-60 mg/dL Desirable: ... > 60 mg/dL *The National Cholesterol Education Program(NCEP) 62 (LDL CANNOT BE CALCULATED FOR TRIGS >400 mg/dL) 63 J02.9 64 NORMAL THROAT LYNN 65 Confirmed 66 NO ORDER 67 Performed at: [address] [id number] Patcher Helper: Francine Khan MD, Phone: [phone] 68 Performed at: [address] [id number] Patcher Helper: Francine Khan MD, Phone: [phone] 69 Negative 0 - 19 Weak Positive 20 - 30 Moderate to Strong Positive >30 70 Negative 0 - 19 Weak Positive 20 - 30 Moderate to Strong Positive >30 71 Negative 0 - 3 Weak Positive 4 - 10 Positive >10 Tissue Transglutaminase (tTG) has been identified as the endomysial antigen. Studies have demonstr- ated that endomysial IgA antibodies have over 99% specificity for gluten sensitive enteropathy. 72 Negative 0 - 5 Weak Positive 6 - 9 Positive >9 73 A second sample should be collected and tested no less than 2-4 weeks. Negative <135 Equivocal 135 - 165 Positive >165 A positive result generally indicates exposure to the pathogen or administration of specific immunoglobulins, but it is not indication of active infection or stage of disease. Performed at: [address] [id number] Patcher Helper: Francine Khan MD, Phone: [phone] 74 Non-immune <0.90 Equivocal 0.90 - 0.99 Immune >0.99 Performed at: [address] [id number] Patcher Helper: Francine Khan MD, Phone: [phone] 75 Negative <25.0 Equivocal 25.0 - 29.9 Positive >29.9 Presence of antibodies to Rubeola is presumptive evidence of immunity except when acute infection is suspected. 76 Negative <9.0 Equivocal 9.0 - 10.9 Positive >10.9 A positive result generally indicates past exposure to Mumps virus or previous vaccination. 77 Non Reactive: Inconsistent with immunity, less than 10 mIU/mL Reactive: Consistent with immunity, greater than 9.9 mIU/mL 78 <10 SQUAMOUS EPITHELIAL CELLS/LPF 79 RARE GRAM POSITIVE COCCI 80 YEAST LIKE ORGANISM 81 RESPIRATORY LYNN 82 J06.9, K13.79, R94.5, JO6.9 83 Performed at: [address] [id number] Patcher Helper: Mitchell Ornelas MD, Phone: [phone] 84 J06.9,K13.79,R94.5 85 NORMAL THROAT LYNN 86 Note: Persistent reduction for 3 months or more in an eGFR <60 mL/min/1.73 m2 defines CKD. Patients with eGFR values >/=60 mL/min/1.73 m2 may also have CKD if evidence of persistent proteinuria is present. The original MDRD equation for estimated GFR is not valid for patients less than 18 years of age. Additional information may be found at www.kdoqi.org. 87 Values below the stated reference ranges of AST and ALT can be seen in normal populations. Clinical correlation is suggested. 88 Reference Guidelines*: Desirable: ........... < 200 mg/dL Borderline High: ..... 200-239 mg/dL High: ................ >=240 mg/dL * The National Cholesterol Education Program (NCEP) 89 Reference Guidelines*: Normal: ............. < 150 mg/dL Borderline High: .... 150-199 mg/dL High: ............... 200-499 mg/dL Very High: .......... > 500 mg/dL * Source: National Cholesterol Education Program (NCEP) 90 Reference Guidelines*: Low HDL: ..... < 40 mg/dL Normal: ..... 40-60 mg/dL Desirable: ... > 60 mg/dL *The National Cholesterol Education Program(NCEP) 91 Reference Guidelines*: Optimal:........... <100 mg/dL Near Optimal....... 100-129 mg/dL Borderline High.... 130-159 mg/dL High............... 160-189 mg/dL Very High.......... >=190 mg/dL * Source: National Cholesterol Education Program (NCEP) 92 E78.5,E03.9, E55.9,MO5.77 93 Vitamin D deficiency has been defined by the [place] [employer] and an Endocrine Society practice guideline as a level of serum 25-OH vitamin D less than 20 ng/mL (1,2). The Endocrine Society went on to further define vitamin D insufficiency as a level between 21 and 29 ng/mL (2). 1. IOM ([place] [employer]). 2010. Dietary reference intakes for calcium and D. [place]: The National Academies Press. 2. Shelby MF, [place], Pablo RUSSELL, et al. Evaluation, treatment, and prevention of vitamin D deficiency: an Endocrine Society clinical practice guideline. JCEM. 2010; 96(7):1911-30. Performed at: RN - [facility] [address] [id number] Patcher Helper: Francine Khan MD, Phone: [phone] 94 Note: Persistent reduction for 3 months or more in an eGFR <60 mL/min/1.73 m2 defines CKD. Patients with eGFR values >/=60 mL/min/1.73 m2 may also have CKD if evidence of persistent proteinuria is present. The original MDRD equation for estimated GFR is not valid for patients less than 18 years of age. Additional information may be found at www.kdoqi.org. 95 Values below the stated reference ranges of AST and ALT can be seen in normal populations. Clinical correlation is suggested. 96 Reference Guidelines*: Desirable: ........... < 200 mg/dL Borderline High: ..... 200-239 mg/dL High: ................ >=240 mg/dL * The National Cholesterol Education Program (NCEP) 97 Reference Guidelines*: Normal: ............. < 150 mg/dL Borderline High: .... 150-199 mg/dL High: ............... 200-499 mg/dL Very High: .......... > 500 mg/dL * Source: National Cholesterol Education Program (NCEP) 98 Reference Guidelines*: Low HDL: ..... < 40 mg/dL Normal: ..... 40-60 mg/dL Desirable: ... > 60 mg/dL *The National Cholesterol Education Program(NCEP) 99 Reference Guidelines*: Optimal:........... <100 mg/dL Near Optimal....... 100-129 mg/dL Borderline High.... 130-159 mg/dL High............... 160-189 mg/dL Very High.......... >=190 mg/dL * Source: National Cholesterol Education Program (NCEP) Procedures Date Code Description Status 06/19/2018 11701 Bronchospasm Provocation Evaluation Multi Spirometric Completed Determinati 06/19/2018 90751 Spirometry Completed 01/15/2018 [id number] Mammogram Completed 11/16/2017 26627 Pressurized/Non-Pressurized Inhalation Treatment,Acute Completed Obstructio 10/14/2017 [id number] Bone Mineral Density Test Completed 12/13/2016 88484 Eye Exam New Patient Comprehensive Completed 06/15/2016 [id number] Colonoscopy Completed 12/27/2015 [id number] Mammogram Completed 03/13/2014 39338 Anesthesia, Vaginal Hysterectomy Completed 09/25/2012 82584 Anesthesia, Lower Arm Surgery Open/Surg Completed Arthroscopic/Endoscopic 12/04/2011 17616 Anesthesia, Upper Abdomen Surgery Not Otherwise Spec Completed 11/30/2011 14920 EKG Interpretation And Report Only Completed 10/05/2008 78593 Colonoscopy With Polypectomy Completed 10/05/2008 [id number] Colonoscopy Completed Encounters Type Date Location Provider Dx Diagnosis Office Visit 01/10/2019 Primary Care Violetta Nix.214A Laceration w/o fb 10:15a Office MG Estrada of r rng fngr w/o damage to nail, init L03.011 Cellulitis of right finger L03.011 Cellulitis of right finger Office Visit 10/30/2018 10:00a Primary Care Jennifer Dia, H92.01 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, right 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, 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, 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 J01.90 Acute sinusitis, unspecified J00 Acute nasopharyngitis [common cold] Office Visit 09/18/2018 10:40a Primary Care Valencia Case, E78.5 Hyperlipidemia, Office MD unspecified E03.9 Hypothyroidism, unspecified R94.5 Abnormal results of liver function studies M25.562 Pain in left knee Z71.6 Tobacco abuse counseling Office Visit 07/05/2018 9:30a Primary Care Ifeoma, J01.90 Acute sinusitis, Office Jennifer, MS, unspecified 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, 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 J30.89 Other allergic rhinitis Z71.6 Tobacco abuse counseling Office Visit 06/13/2018 11:00a Primary Care Valencia Case, N28.1 Cyst of kidney, Office MD acquired R94.5 Abnormal results of liver function studies J44.9 Chronic obstructive pulmonary disease, unspecified M77.41 Metatarsalgia, right foot J30.9 Allergic rhinitis, unspecified E78.5 Hyperlipidemia, unspecified Office Visit 03/12/2018 10:40a Primary Care Maik Casea, H66.91 Otitis media, Office MD unspecified, right ear R10.10 Upper abdominal pain, unspecified R19.7 Diarrhea, unspecified R30.0 Dysuria Office Visit 01/15/2018 10:40a Primary Care Maik Casea, E78.5 Hyperlipidemia, Office MD unspecified E03.9 Hypothyroidism, unspecified E55.9 Vitamin D deficiency, unspecified R94.5 Abnormal results of liver function studies N28.1 Cyst of kidney, acquired D37.6 Neoplasm of uncertain behavior of liver, GB & bile duct M77.41 Metatarsalgia, right foot Office Visit 11/16/2017 10:40a Primary Care Valencia Case, H66.91 Otitis media, Office MD unspecified, right ear J06.9 Acute upper respiratory infection, unspecified J44.1 Chronic obstructive pulmonary disease w (acute) exacerbation Office Visit 09/05/2017 10:40a Primary Care Valencia Case, R94.5 Abnormal results Office MD of liver function studies E78.5 Hyperlipidemia, unspecified E03.9 Hypothyroidism, unspecified E55.9 Vitamin D deficiency, unspecified M77.41 Metatarsalgia, right foot Office Visit 08/17/2017 9:20a Primary Care Valencia Case, J44.1 Chronic obstructive Office MD pulmonary disease w (acute) exacerbation J02.9 Acute pharyngitis, unspecified Office Visit 05/30/2017 8:15a Primary Care Office Agnieszka Chauhanecca, K14.0 Glossitis M.D. B37.81 Candidal esophagitis J06.9 Acute upper respiratory infection, unspecified K13.79 Other lesions of oral mucosa R94.5 Abnormal results of liver function studies R06.02 Shortness of breath Z71.6 Tobacco abuse counseling J01.90 Acute sinusitis, unspecified E03.9 Hypothyroidism, unspecified Office Visit 05/02/2017 9:40a Primary Care Valencia Case, E03.9 Hypothyroidism, Office MD unspecified E78.5 Hyperlipidemia, unspecified E55.9 Vitamin D deficiency, unspecified M25.571 Pain in right ankle and joints of right foot Office Visit 03/09/2017 10:40a Primary Care Ceferino Rawls, H66.91 Otitis media, Office M.D. 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 No drainage from area, but significant erythema, swelling and pain.Will treat as noted below.Unable to find record of last tetanusshot. Will update today with TdapL03.011 Cellulitis of right fingerNew Medication:Cephalexin 500 mg - 1 by mouth three times a dayComments:Cellulitis to right ring finger. Will treat with Antibiotics- discussed possible side effects.Warm soaks.Work note to avoid work for next 3 daysFollow up:Please give work note
[2019-02-10 19:13] VITALS: BP 128/85
[2019-02-10] MEDS ORDERED: predniSONE TAB* 20 MG PO ONE (19:35)
[2019-02-10] MEDS ORDERED: Albuterol/Ipratropium NEB.SOL* Albuterol 2.5 MG/Ipratropium 0.5 MG 3 ML INH ONE (19:35)
[2019-02-10] MEDS ORDERED: Amoxicillin/Clavulanate TAB* 875 MG PO ONE (20:10)
--- NOTE | 2019-02-10 20:12 | ED ---
Respiratory - HPI Summary HPI Summary: 49 yr old female with the complaint of runny nose, coughing, sinus pressure, and some wheezing and SOB. Onset of symptoms over the past week and worsening. She is a smoker. She denies a history of COPD. She denies chest pain. She states the cough keeps her awake at night. - History of Current Complaint Chief Complaint: UCGeneralIllness Stated Complaint: SORE THROAT Time Seen by Provider: 02/10/19 19:29 Pain Intensity: 7 - Allergy/Home Medications Allergies/Adverse Reactions: Allergies Allergy/AdvReac Type Severity Reaction Status Date / Time divalproex sodium Allergy Intermediate Hives Verified 02/10/19 19:07 [From Depakote] naproxen Allergy Intermediate Hives Verified 02/10/19 19:07 sertraline [From Zoloft] Allergy Intermediate Hives Verified 02/10/19 19:07 morphine AdvReac Intermediate Vomiting Verified 02/10/19 19:07 PMH/Surg Hx/FS Hx/Imm Hx Endocrine/Hematology History: Reports: Hx Thyroid Disease - KRIS Cardiovascular History: Denies: Hx Pacemaker/ICD Respiratory History: Reports: Hx Asthma Sensory History: Denies: Hx Hearing Aid Psychiatric History: Denies: Hx Panic Disorder - Surgical History Surgery Procedure, Year, and Place: THYROIDECTOMY- now complete. CHOLECYSTECTOMY. RIGHT FOOT SX. hysterectomy. 2 C-sections Infectious Disease History: No Infectious Disease History: Denies: Traveled Outside the [place] in Last 30 Days - Family History Known Family History: Positive: None Negative: Cardiac Disease, Hypertension, Diabetes - Social History Occupation: Employed Full-time Alcohol Use: Occasionally Substance Use Type: Reports: None Smoking Status (MU): Heavy Every Day Tobacco Smoker Type: Cigarettes Amount Used/How Often: 1 ppd Length of Time of Smoking/Using Tobacco: 30 YRS since age 14 yo Have You Smoked in the Last Year: Yes Review of Systems Constitutional: Negative Positive: Sore Throat, Ear Ache, Nasal Discharge Positive: Shortness Of Breath, Cough All Other Systems Reviewed And Are Negative: Yes Physical Exam Triage Information Reviewed: Yes Vital Signs On Initial Exam: Initial Vitals Temp Pulse Resp BP Pulse Ox 97.9 F 109 24 128/85 99 02/10/19 19:09 02/10/19 19:09 02/10/19 19:09 02/10/19 19:09 02/10/19 19:09 Vital Signs Reviewed: Yes Appearance: Positive: Well-Appearing, No Pain Distress Skin: Positive: Warm, Skin Color Reflects Adequate Perfusion Head/Face: Positive: Normal Head/Face Inspection Eyes: Positive: EOMI ENT: Positive: Pharynx normal, Nasal congestion, Nasal drainage, TM red - left, Sinus tenderness Neck: Positive: Nontender Respiratory/Lung Sounds: Positive: Decreased Breath Sounds. Negative: Stridor, Wheezes Cardiovascular: Positive: RRR. Negative: Murmur Abdomen Description: Negative: Distended Musculoskeletal: Positive: Strength/ROM Intact Neurological: Positive: Sensory/Motor Intact, Alert, Oriented to Person Place, Time, CN Intact II-III Psychiatric: Positive: Normal Diagnostics - Vital Signs Vital Signs Temp Pulse Resp BP Pulse Ox 02/10/19 19:09 97.9 F 109 24 128/85 99 - Laboratory Lab Results: Lab Results 02/10/19 Range/Units 19:19 Group A Strep Rapid Negative (Negative) Lab Statement: Any lab studies that have been ordered have been reviewed, and results considered in the medical decision making process. - Radiology chest pa lat Radiology Interpretation Completed By: ED Physician - NAD Re-Evaluation - Re-Evaluation First Eval Re-Evaluation Time: 20:09 Change: Improved Comment: better air movement. appears more comfortable. Disposition - Course Course Of Treatment: Left OM, sinusitis, and asthmatic bronchitis. Rx pred. She has inhalers already. prednisone and augmentin script given - Diagnoses Provider Diagnoses: Left otitis media, Sinusitis, Asthmatic bronchitis Discharge - Sign-Out/Discharge Documenting (check all that apply): Patient Departure All imaging exams completed and their final reports reviewed: No - Discharge Plan Condition: Good Disposition: HOME Prescriptions: Amoxicillin/Clavulanate TAB* [Augmentin TAB 875*] 875 mg PO BID #20 tab predniSONE TAB* [Deltasone 20 MG TAB*] 40 mg PO DAILY #8 tab Patient Education Materials: Sinusitis (ED), Ear Infection (ED), Bronchospasm ( ED) Referrals: Valencia Case MD [Primary Care Provider] - 2 Days - Billing Disposition and Condition Condition: GOOD Disposition: Home
== END 2019-02-10 20:20 | disposition home or self-care (01) ==
LOC: UCCORT 18:44
DX: H66.92 Otitis media, unspecified, left ear (principal); J32.9 Chronic sinusitis, unspecified; J45.909 Unspecified asthma, uncomplicated; E06.3 Autoimmune thyroiditis; F17.210 Nicotine dependence, cigarettes, uncomplicated
CPT/HCPCS: 71046; 87651; 99212; A9270-GY; G0463; J7512

== ENCOUNTER 2022-12-14 06:22 | Observation (INO) ==
[~2022-12-14 06:22] MED LIST: Buffered Lidocaine 1% SYRIN 1 ml INTRADERM ONE; Lactated Ringers 1000 ml BAG 1,000 ML IV SCH; Naloxone 0.4 mg VIAL 0.4 mg/ml 1 ml VIAL IV PRN; Ondansetron 4 mg VIAL 2 MG/ML 2 ml VIAL IV PRN; Tranexamic Acid 1,000 MG/10 ML 1,000 MG in NS 0.9% 50 ML 50 ML IV SCH; fentaNYL 100 mcg/2 ml 50 MCG/ML VIAL IV PRN; oxyCODONE/Acetamin 5/325 mg TAB PO PRN
[2022-12-14] MEDS ORDERED: ceFAZolin 2 GM in NS PREMIX 2 GM/100 ML BAG IVPB ONE (06:54)
[2022-12-14 07:20] LABS: Rapid COVID-19 Molecular Undetected (Undetected)
[2022-12-14] MEDS ORDERED: Propofol 0 MG/0 ML BTL ONE (08:23)
[2022-12-14] MEDS ORDERED: ROPIVACAINE 5 MG/ML 30 ML BTL (0.5%) ONE (09:14)
[2022-12-14] MEDS ORDERED: Lidocaine 2% PF 5 ML VIAL ONE (09:33)
[2022-12-14] MEDS ORDERED: fentaNYL 250 mcg/5 ml 50 MCG/ML 5 ml VIAL (250 MCG) ONE (09:33)
[2022-12-14] MEDS ORDERED: Propofol 10 MG/ML 20 ML BTL ONE (09:33)
[2022-12-14] MEDS ORDERED: Midazolam 2 mg/2 ml VIAL 1 mg/ml 2 ml VIAL (2 mg) ONE (09:33)
[2022-12-14] MEDS ORDERED: Ondansetron 4 mg VIAL 2 MG/ML 2 ml VIAL ONE ×2 (09:45→12:56)
[2022-12-14] MEDS ORDERED: Dexamethasone IV 4 MG/ML VIAL 1 ml VIAL ONE (09:45)
[2022-12-14] MEDS ORDERED: Acetaminophen IV 1 GM/100ML 1,000 MG/100 ML BAG IV ONE (09:46)
[2022-12-14] MEDS ORDERED: HYDROmorphone 0.5 MG/0.5 ML SYRINGE ONE ×2 (10:51→11:13)
[2022-12-14] MEDS ORDERED: Morphine 2 MG/ML SYRINGE IV PRN (12:32)
[2022-12-14] MEDS ORDERED: Magnesium Hydroxide LIQ 30 ML UDC PO PRN (12:32)
[2022-12-14] MEDS ORDERED: Ondansetron ODT 4 mg TAB 4 MG TAB PO PRN (12:32)
[2022-12-14] MEDS ORDERED: Lactulose 30 ml UDC PO PRN (12:32)
[2022-12-14] MEDS ORDERED: oxyCODONE/Acetamin 5/325 mg TAB ONE (12:56)
[2022-12-14] MEDS ORDERED: Lactated Ringers 1000 ml BAG 1,000 ML IV SCH (13:00)
[2022-12-14] MEDS: Ondansetron 4 mg VIAL 2 MG/ML 2 ml VIAL IV PRN ×2 (15:28→20:34)
[2022-12-14] MEDS ORDERED: Morphine 2 MG/ML SYRINGE ONE (15:31)
[2022-12-14] MEDS ORDERED: oxyCODONE/Acetamin 5/325 mg TAB PO ONE (15:40)
[2022-12-14] MEDS ORDERED: Nicotine GUM 4MG FRUIT FLAVOR PO PRN (15:56)
[2022-12-14] MEDS: HYDROmorphone 0.5 MG/0.5 ML SYRINGE IV SLOW PU PRN (16:25)
[2022-12-14] MEDS: ceFAZolin 1 GM ADVAN 1 GM in NS 0.9% 50 ML 50 ML IVPB SCH (17:55)
[2022-12-14] MEDS: Nicotine PATCH 21 MG/24 HR PATCH TRANSDERM SCH (18:00)
[2022-12-14] MEDS ORDERED: Phenytoin 100 mg ER CAP PO SCH (21:00)
[2022-12-14] MEDS ORDERED: Scopolamine 1 mg/72hr PATCH TRANSDERM SCH (22:00)
[2022-12-14] MEDS: Magnesium Hydroxide LIQ 30 ML UDC PO SCH (22:06)
[2022-12-15] MEDS: ceFAZolin 1 GM ADVAN 1 GM in NS 0.9% 50 ML 50 ML IVPB SCH ×2 (01:40→09:51)
[2022-12-15] MEDS: HYDROmorphone 0.5 MG/0.5 ML SYRINGE IV SLOW PU PRN (01:42)
[2022-12-15 05:46] LABS: Hematocrit 35.9 % (35-45); Mean Platelet Volume 8.8 fL (7.5-11.2); Platelet Count 224 10^3/uL (150-450)
[2022-12-15 06:02] LABS: Calcium 8.7 mg/dL (8.6-10.3); Creatinine, Serum 0.68 mg/dL (0.51-0.95); eGFR CKD-EPI 105.4 (>60)
[2022-12-15] MEDS ORDERED: Vitamin THERAPEUTIC TAB PO SCH (09:00)
[2022-12-15] MEDS: Magnesium Hydroxide LIQ 30 ML UDC PO SCH (09:49)
[2022-12-15] MEDS: Nicotine PATCH 21 MG/24 HR PATCH TRANSDERM SCH (09:53)
[2022-12-15] MEDS ORDERED: Fluticasone NASAL SPRAY 50MCG 16 gm SPRAY BTL INTRANASAL PRN (10:11)
[2022-12-15] MEDS ORDERED: Albuterol HFA INHALER 8 gm MDI INH PRN (10:11)
[2022-12-15 10:42] VITALS: BP 143/74
[2022-12-15] MEDS ORDERED: Gemfibrozil 600 mg PO SCH (16:45)
[2022-12-15] MEDS ORDERED: Cholecalciferol (VIT D3) 1,000 unit TAB PO SCH (21:00)
[2022-12-15] MEDS ORDERED: Colestipol 1 gm TAB (NF) PO SCH (21:00)
== END 2022-12-15 13:35 | disposition home or self-care (01) ==
LOC: INTOOBSV 06:22 → SUATTDRO 06:22 → AA 06:22 → SSU 12:32
PROVIDERS: ADMIT Orthopaedic Surgery Adult Reconstructive Orthopaedic Surgery; ATTEND Orthopaedic Surgery Adult Reconstructive Orthopaedic Surgery